=== PATIENT | female | born 1960 | race Caucasian/White ===

== ENCOUNTER 2023-08-19 17:09 | Emergency (ER) | payer MEDICARE, MEDICAID, SELFPAY ==
[2023-08-19] VITALS (35 sets, daily range): BP systolic 106–142; BP diastolic 54–102; PULSE 62–81; RESP 8–21; TEMP 36.8; O2SAT 93–100
--- NOTE | ~2023-08-19 | XR_ITS ---
XR chest 1V portable DATE: 08/19/2023 17:26 INDICATION: Chest pain, shortness of breath. Covid. TECHNIQUE: Portable supine AP view on 08/19/2023 at 1720 hours COMPARISON: None FINDINGS: Borderline heart size. Aortic arch calcification. No hilar or mediastinal enlargement. No pulmonary consolidation, pleural effusion, pulmonary vascular congestion or pneumothorax is detect ed. IMPRESSION: No active disease Reviewed, dictated and finalized at location B. IMPRESSION: No active disease
--- NOTE | ~2023-08-19 | CT_ITS ---
EXAMINATION: CTA chest PE protocol DATE: 08/19/2023 18:31 INDICATION: Cough and shortness of breath, COVID 19 positive TECHNIQUE: Computed tomography angiography (CTA) of the chest was performed with 100 mL Omnipaque-350 intravenous contrast timed to evaluate the pulmonary arteries. Coronal maximum intensity projection 3D-reconstructions were created by the technologist. The dose-length product (DLP) was 981.70 mGy-cm. Automated exposure control and iterative reconstruction technique were employed. COMPARISON: None. FINDINGS: The pulmonary arteries are well-opacified. No pulmonary embolism is identified. There is mi ld dependent atelectasis. Trace pleural effusions are present. There is no pneumothorax. No pathologi vito enlarged thoracic lymph nodes are identified. The heart size is normal. Calcified coronary shelli ry atherosclerosis is noted. There are changes of cholecystectomy. A 2.1 cm left adrenal mass contain ing macroscopic fat is consistent with a myelolipoma. There is moderate thoracic spondylosis. There i s advanced osteoarthritis of the shoulders. IMPRESSION: 1. No pulmonary embolism. Trace pleural effusions. Reviewed, dictated and finalized at location F.
--- NOTE | 2023-08-19 17:14 | ECG_ITS ---
Measurements Intervals [place] Rate: 73 P: 65 CO: 185 QRS: -44 QRSD: 98 T: 70 QT: 408 QTc: 451 Interpretive Statements SINUS RHYTHM MARKED LEFT AXIS DEVIATION [QRS AXIS < -30] PATTERN CONSISTENT WITH PULMONARY DISEASE NONSPECIFIC T-WAVE ABNORMALITY ABNORMAL ECG NO PREVIOUS ECG AVAILABLE FOR COMPARISON Electronically Signed On 08-20-2023 8:50:32 CDT by Tom Gold M.D.
--- NOTE | 2023-08-19 17:25 | ED.GENADULT ---
HPI - General Adult General Chief complaint: Unspecified Stated complaint: COVID+, CP/SOB Time Seen by Provider: 08/19/23 17:14 Source: patient Mode of arrival: EMS Limitations: no limitations History of Present Illness HPI narrative: Patient is a 62 y/o female who presents to the ED via EMS with c/o CP/SOB. Patient is a resident of [facility]. Patient is wheelchair-bound due to previous reconstructive surgeries on feet. She reports she was diagnosed with COVID-19 on Tuesday of this week. She complains of headaches, body aches, occasional lightheadedness, cough, decreased appetite. Over the last 2 days, she reports having increased shortness of breath and midsternal chest pain. She states the chest pain feels like her body aches. [facility] She denies fevers, nausea, vomiting, abdominal pain, lower extremity pain or swelling. Related Data Allergies Allergy/AdvReac Type Severity Reaction Status Date / Time levofloxacin Allergy Unknown Verified 08/19/23 17:20 metformin Allergy Unknown Verified 08/19/23 17:20 morphine Allergy Unknown Verified 08/19/23 17:20 Review of Systems Review of Systems: CONSTITUTIONAL: Reports decreased appetite. Denies fever, chills, or sweats. ENT: Denies rhinorrhea, congestion, sore throat. CARDIOVASCULAR: See HPI. RESPIRATORY: See HPI. GASTROINTESTINAL: Denies abdominal pain, nausea, vomiting, or diarrhea. GENITOURINARY: Denies dysuria or hematuria. SKIN: Denies rash or itching. MUSCULOSKELETAL: Reports myalgia. NEUROLOGIC: See HPI. All systems reviewed & are unremarkable except as noted in HPI and below Exam Narrative: GENERAL: Well appearing, morbidly obese with BMI of 40.8, non-toxic, in no acute distress. HEAD: Normocephalic, atraumatic. NECK: Supple. No adenopathy, no masses. RESPIRATORY: Airway patent, respirations nonlabored. Clear to auscultation bilaterally, no rales, rhonchi, wheezing. No focal lung sounds. Occasional coughing on exam. CARDIOVASCULAR: Regular rate and rhythm without murmurs, rubs, or gallops. Radial pulses 2+ and equal bilaterally. ABDOMINAL: Soft, no significant tenderness throughout abdomen, nondistended, no hepatosplenomegaly. Normoactive BS. MUSCULOSKELETAL: Moves all extremities. Strength/ROM intact without gross deformities. Chronic surgical deformities to bilateral feet. No lower extremity edema. No calf tenderness. SKIN: Warm, dry, normal color. No rashes. NEURO: A&O X3. Speech clear. Cranial nerves II-XII grossly intact. No ataxic movements. PSYCHIATRIC: Appropriate mood and affect. Normal interaction. Course Vital Signs Vital signs: Vital Signs Temperature 98.3 F 08/19/23 17:11 Pulse Rate 81 08/19/23 17:11 Respiratory Rate 15 08/19/23 17:11 Blood Pressure 121/74 08/19/23 17:11 Pulse Oximetry 99 08/19/23 17:11 Oxygen Delivery Room Air 08/19/23 17:11 Temperature 98.3 F 08/19/23 17:11 Pulse Rate 93 08/20/23 01:48 Respiratory Rate 21 H 08/20/23 01:48 Blood Pressure 123/95 H 08/20/23 01:48 Pulse Oximetry 96 08/20/23 01:48 Oxygen Delivery Room Air 08/19/23 17:21 Medical Decision Making MDM Narrative Medical decision making narrative: Patient presented to ED with known COVID 19, reporting shortness of breath, chest pain. Patient's vitals stable upon arrival. Oxygen 99% on room air. Afebrile. No tachycardia. EKG with nonspecific ST changes, no acute ST elevation or depression. Baseline troponin negative. Basic laboratory studies without significant abnormalities. UA with signs of infection, will treat. CBC w/o leukocytosis. No significant electrolyte abnormality. Creatinine 1.2. Unclear baseline, no records to compare to. Patient given fluids and ceftriaxone in the ED. Mild transaminitis. Patient without abdominal pain, nausea, vomiting at this time. Chest x-ray clear. Given COVID diagnosis, shortness of breath, chest
[2023-08-19 17:42] LABS: Basophils Percent Auto 0.6 % (0.2-1.2); Eosinophils Absolute Auto 0.3 K/mm3 (0-0.3); Eosinophils Percent Auto 4.6 % (0-4.4); Hematocrit 36.4 % (37.0-47.0); Hemoglobin 11.1 g/dL (12.0-15.0); Immature Granulocyte Absolute 0.03 K/mm3 (0.00-0.031); Immature Granulocyte Percent A 0.4 % (0-0.5); Lymphocytes Absolute Auto 1.04 K/mm3 (0.9-3.2); Lymphocytes Percent Auto 14.3 % (18.3-44.2); Mean Corpuscular HGB Conc 30.5 g/dl (32-36); Mean Corpuscular Hemoglobin 24.8 pg (26-34); Mean Corpuscular Volume 81.3 fl (80-100); Mean Platelet Volume 9.8 fl (7.4-10.4); Monocytes Absolute Auto 0.9 K/mm3 (0.1-0.6); Monocytes Percent Auto 11.7 % (2.6-8.5); Neutrophils Percent Auto 68.4 % (45.5-73.1); Platelet Count Result 199 k/mm3 (150-375); Red Blood Count 4.48 M/mm3 (4.2-5.4); Red Cell Distribution Width 19.1 % (11.5-14.5); White Blood Count 7.3 K/mm3 (4.5-10.0)
[2023-08-19 17:55] LABS: Prothrombin Time 13.4 Seconds (11.1-14.7)
[2023-08-19 17:56] LABS: Partial Thromboplastin Time 27.9 SECONDS (22.3-36.8)
[2023-08-19 18:02] LABS: Alanine Aminotransferase 68 U/L (6-35); Albumin Level 3.8 g/dL (3.5-5.1); Alkaline Phosphatase 125 U/L (38-126); Anion Gap 9 mmol/L (8-16); Aspartate Amino Transferase 69 U/L (14-36); Bilirubin,Total 0.8 mg/dL (0.2-1.3); Blood Urea Nitrogen 19 mg/dL (7-17); Calcium 8.8 mg/dL (8.4-10.2); Carbon Dioxide 24 mmol/L (22-30); Chloride 100 mmol/L (98-107); Estimated CRCL calculation 58 ml/min; Estimated Glomerular Filt Rate 46; Glucose 127 mg/dL (65-110); Magnesium 1.6 mg/dL (1.6-2.3); Potassium 4.1 mmol/L (3.4-5.0); Sodium 133 mmol/L (137-145)
[2023-08-19 18:12] LABS: Troponin I < 0.012 ng/mL (0.000-0.034)
[2023-08-19] MEDS: ACETAMINOPHEN 500 MG TABLET 1000 MG PO (18:43)
[2023-08-19 21:47] LABS: NT Pro B Type Natriuretic Pept 84 pg/mL (19.9-100)
[2023-08-19 21:50] LABS: Troponin I < 0.012 ng/mL (0.000-0.034)
[2023-08-19 23:14] LABS: Appearance Urine Cloudy (Clear); Bacteria Urine 4+ /hpf; Bilirubin Urine Negative (Negative); Blood Urine 2+ (Negative); Color Urine Yellow (Yellow); Glucose Urine UA Negative (Negative); Ketones Urine Negative (Negative); Leukocyte Esterase Ur 2+ LEU/UL (Negative); Nitrate Urine Positive (Negative); Non Pathogenic Casts 0-2; Protein Urine Negative (Negative); Specific Grav Ur 1.017 (1.001-1.035); Squamous Epithelial Cell Urine None seen /hpf (Few); Urobilinogen Urine 0.2 mg/dL (<2.0); WBC Urine 21-50 /hpf
[2023-08-19 23:36] LABS: Add Urine Microscopic? YES
[2023-08-20] VITALS: PULSE 69; RESP 12
[2023-08-20 00:01] VITALS: BP 131/81; PULSE 69; RESP 12
[2023-08-20 00:15] VITALS: PULSE 76; RESP 22
[2023-08-20 00:16] VITALS: BP 123/64; PULSE 70; RESP 11
[2023-08-20 01:48] VITALS: BP 123/95; PULSE 93; RESP 21; O2SAT 96
== END 2023-08-20 01:50 ==
PROVIDERS: Emergency Provider Physician Assistant; PCP Hospitalist
DX: U07.1 COVID-19 (principal); N30.01 Acute cystitis with hematuria; R06.00 Dyspnea, unspecified; M79.10 Myalgia, unspecified site
CPT/HCPCS: 36415; 71045; 71275; 80053; 81001; 83735; 83880; 84484; 85025; 85610; 85730; 87077; 87086; 87186; 93005; 96365; 99284; A9270; J0696; Q9967

== ENCOUNTER 2024-01-31 17:18 | Emergency (ER) | payer MEDICARE, MEDICAID, SELFPAY ==
--- NOTE | ~2024-01-31 | CT_ITS ---
EXAMINATION: CT abdomen pelvis w con DATE: 01/31/2024 20:58 INDICATION: abdominal pain TECHNIQUE: Computed tomography (CT) of the abdomen and pelvis was performed with 100 mL Omnipaque-350 intravenous contrast. Automated exposure control and iterative reconstruction technique were employe d. The dose-length product was 1508.14 mGy-cm. COMPARISON: None. FINDINGS: Lower thorax: Coronary artery and mitral calcification. Liver: Enlarged. Diffuse fatty infiltration. Biliary/Gallbladder: Gallbladder is absent. No bile duct dilation. Pancreas: Mild fatty infiltration. Spleen: Normal. Adrenals:Left adrenal myelolipoma. Kidneys: No suspicious mass, obstructing stone, or hydronephrosis. Punctate nonobstructing right midp ole calcification. GI tract: No small or large bowel dilation. Normal appendix. Diverticulosis without diverticulitis. Mesentery/Peritoneum: No ascites, mass, or free air. Retroperitoneum: No mass. Atherosclerotic abdominal aortic and/or arterial calcifications. Pelvis: Bulky enlarged uterus. Urinary bladder decompressed by Barajas catheter. 3.8 cm simple appearin g left ovarian cyst. Normal right ovary.. Soft Tissues: 3 cm area of soft tissue thickening and calcification at the base of the umbilicus, pos sibly with a small fluid collection. Small umbilical hernia, with closely applied loops of small kennedy l. Bones: No acute osseous finding. Grade 2 anterolisthesis at L5-S1. Multilevel severe lower lumbar fa cet arthropathy. Multilevel severe spinal canal and neural foraminal stenosis secondary to degenerati ve changes. IMPRESSION: Hepatomegaly. Steatosis. Question of a thick-walled possibly fluid containing deep soft tissue abscess at the umbilicus, corre late for pain/tenderness or symptoms of drainage. Closely applied underlying small bowel loops may be involved by adhesions. No dilation to suggest obstruction. Likely fibroid uterus. 3.8 cm simple appearing left ovarian cyst, recommend pelvic ultrasound follow-up in 6-12 months. Reviewed, dictated and finalized at location K. IMPRESSION: Hepatomegaly. Steatosis. Question of a thick-walled possibly fluid containing deep soft tissue abscess a t the umbilicus, correlate for pain/tenderness or symptoms of drainage. Closely applied underlying small bowel loops may be involved by adhesions. No dilation to suggest obstruction. Likely fibroid uterus. 3.8 cm simple appearing left ovarian cyst, recommend pelvic ultrasound follow-u p in 6-12 months.
[2024-01-31 17:25] VITALS: BP 136/93; PULSE 84; RESP 18; TEMP 36.9; O2SAT 95
[2024-01-31 19:30] VITALS: BP 142/81; PULSE 84; RESP 15; O2SAT 96
--- NOTE | 2024-01-31 19:39 | ED.GENADULT ---
HPI - General Adult General Chief complaint: Extremity Problem,Nontraumatic Stated complaint: LOwer extremity swelling Time Seen by Provider: 01/31/24 19:18 History of Present Illness HPI narrative: Patient is a 63-year-old female who presents to the emergency department this evening complaining of a lump on her right leg. Patient states that she has had this for a long time and her primary care physician informed her that it is likely a lipoma and if it is best to bother she needs to follow-up with a general surgeon as they might need to removed. Patient states that it is starting to bother her and she left for surgical referral for follow-up. Patient also states that she has been having intermittent abdominal pain to the left side of her abdomen. She admits that she has had a hernia repair with mesh and is concerned that the mesh may have moved as she has been having intermittent left-sided pain mainly when she moves. Patient denies any nausea or vomiting, she is currently denying any urinary symptoms dysuria hematuria admits has any fevers or chills at home and denies any constipation, diarrhea, melena or hematochezia. There are no other modifying, alleviating, or precipitating factors at this time. Related Data Allergies Allergy/AdvReac Type Severity Reaction Status Date / Time levofloxacin Allergy Unknown Verified 01/31/24 19:39 metformin Allergy Unknown Verified 01/31/24 19:39 morphine Allergy Unknown Verified 01/31/24 19:39 Review of Systems Review of Systems: All systems are reviewed and are negative unless stated otherwise in the HPI. Exam Narrative: General: Alert, awake, afebrile, in no acute distress. HEENT: PERRL, no rhinorrhea, no post nasal drip, oropharynx clear. Neck: Trachea midline, no JVD, no lymphadenopathy. Cardiovascular: Regular rate and rhythm, no murmurs, rubs or gallops, no peripheral edema. Respiratory: Clear to auscultation bilaterally, no tachypnea, no wheezing, no rhonchi, no rubs, no respiratory distress. Abdomen: Soft, no tenderness to palpation over all abdominal quadrants specifically no tenderness over the left upper quadrant and periumbilical region, nondistended, no rebound, no guarding, no peritoneal signs. Musculoskeletal: Right lower extremity id lump palpated in the anterior lateral region below the right knee, likely lipoma. No calf tenderness, no pitting edema, no erythema or evidence of infection. Skin: No rashes or petechia, no signs of infection. Psychiatric: Alert and oriented, normal behavior and judgment for situation. Neurological: Alert and oriented to person, place, and time. Follows all commands. No focal deficits, speech is clear and fluent. Course Vital Signs Vital signs: Vital Signs Temperature 98.5 F 01/31/24 17:25 Pulse Rate 84 01/31/24 17:25 Respiratory Rate 18 01/31/24 17:25 Blood Pressure 136/93 H 01/31/24 17:25 Pulse Oximetry 95 01/31/24 17:25 Temperature 98.5 F 01/31/24 17:25 Pulse Rate 75 01/31/24 21:26 Respiratory Rate 18 01/31/24 21:26 Blood Pressure 151/90 H 01/31/24 21:26 Pulse Oximetry 99 01/31/24 21:26 Medical Decision Making MDM Narrative Medical decision making narrative: The patient was evaluated by myself in the emergency department. History is obtained from patient who is an independent historian and physical exam was performed. External medical records were reviewed at this time. IV was established and pertinent tests were ordered. Laboratory results obtained revealing no acute process. Imaging studies obtained included CT abdomen and pelvis with IV contrast which was independently interpreted by me revealing questionable area of a thick-walled possibly fluid containing deep soft tissue abscess at the umbilicus, correlate for pain/tenderness or symptoms of drainage. Patient has no tenderness over the umbilical region and states that her pain is along her left upper quadrant and mild in nature. P
[2024-01-31 19:57] LABS: Basophils Absolute Auto 0.1 K/mm3 (0.0-0.1); Basophils Percent Auto 0.7 % (0.2-1.2); Eosinophils Absolute Auto 0.2 K/mm3 (0-0.3); Eosinophils Percent Auto 2.5 % (0-4.4); Hematocrit 37.6 % (37.0-47.0); Hemoglobin 12.3 g/dL (12.0-15.0); Immature Granulocyte Absolute 0.06 K/mm3 (0.00-0.031); Immature Granulocyte Percent A 0.7 % (0-0.5); Lymphocytes Absolute Auto 1.78 K/mm3 (0.9-3.2); Lymphocytes Percent Auto 19.4 % (18.3-44.2); Mean Corpuscular HGB Conc 32.7 g/dl (32-36); Mean Corpuscular Hemoglobin 28.2 pg (26-34); Mean Corpuscular Volume 86.2 fl (80-100); Mean Platelet Volume 9.2 fl (7.4-10.4); Monocytes Absolute Auto 0.7 K/mm3 (0.1-0.6); Monocytes Percent Auto 7.3 % (2.6-8.5); Neutrophils Absolute Auto 6.4 K/mm3 (1.3-6.7); Neutrophils Percent Auto 69.4 % (45.5-73.1); Platelet Count Result 213 k/mm3 (150-375); Red Blood Count 4.36 M/mm3 (4.2-5.4); Red Cell Distribution Width 14.8 % (11.5-14.5); White Blood Count 9.2 K/mm3 (4.5-10.0)
[2024-01-31 20:11] LABS: Lactic Acid Reflex 1.9 mmol/L (0.7-2.0)
[2024-01-31 20:13] LABS: Alanine Aminotransferase 33 U/L (6-35); Albumin Level 3.9 g/dL (3.5-5.1); Alkaline Phosphatase 164 U/L (38-126); Anion Gap 8 mmol/L (4-12); Aspartate Amino Transferase 43 U/L (14-36); Bilirubin,Total 0.7 mg/dL (0.2-1.3); Blood Urea Nitrogen 26 mg/dL (7-17); Calcium 9.5 mg/dL (8.4-10.2); Carbon Dioxide 26 mmol/L (22-30); Chloride 97 mmol/L (98-107); Estimated CRCL calculation 64 ml/min; Estimated Glomerular Filt Rate 50; Glucose 264 mg/dL (65-110); Lipase 823 U/L (23-300); Potassium 4.4 mmol/L (3.4-5.0); Sodium 131 mmol/L (137-145)
[2024-01-31] MEDS: SODIUM CHLORIDE 0.9% IV 1,000 ML 999 ML IV CONT (20:45)
[2024-01-31 21:26] VITALS: BP 151/90; PULSE 75; RESP 18; O2SAT 99
[2024-01-31] MEDS: ACETAMINOPHEN 325 MG TABLET 650 MG PO (22:42)
[2024-01-31 23:50] VITALS: BP 146/90; PULSE 72; RESP 19; O2SAT 100
== END 2024-02-01 00:15 | disposition home or self-care (01) ==
PROVIDERS: Emergency Provider Emergency Medicine; PCP Hospitalist
DX: R10.12 Left upper quadrant pain (principal); R74.8 Abnormal levels of other serum enzymes
CPT/HCPCS: 36415; 74177; 80053; 82248; 83605; 83690; 85025; 96360; 99284; A9270; J7030; Q9967

== ENCOUNTER 2024-04-02 21:00 | Inpatient (IN) | payer MEDICARE, MEDICAID, SELFPAY ==
--- NOTE | ~2024-04-02 | MR_ITS ---
MR brain/brain stem with and wo con Ordering provider: Cassidy Marcos MD History: 63 years Female with . history of epilepsy, presenting with status epilep . Comparison: None Technique: MRI brain was performed without contrast. FINDINGS: BONES: Normal. CRANIOCERVICAL JUNCTION: normal. PITUITARY: Normal. Partial empty sella turcica. MAJOR INTRACRANIAL VESSELS: Normal flow void. OPTIC NERVES AND CRANIAL NERVES VII AND VIII COMPLEXES: Grossly normal. BRAIN PARENCHYMA AND CSF SPACES: Scattered T2 and FLAIR hyperintense signal areas are seen in the br ain white matter and pericallosal area suggestive of white matter disease. T2 and FLAIR hyperintense signal areas seen in the rachel which measures 1.9 x 1.7 cm. No diffusion restriction is seen in the ar ea. No acute or chronic intracranial hemorrhage. No extra axial fluid collections. Diffusion weighted and ADC mapping images reveal no definite recent ischemia. No midline shift or mass effect. PARANASAL SINUSES: Normal. MASTOIDS: Normal SUPERFICIAL/SURROUNDING SOFT TISSUES: Normal. IMPRESSION: 1. T2 and FLAIR hyperintense signal area in the rachel with no postcontrast enhancement. The different ial includes multiple sclerosis, mass, encephalitis and hemorrhage. No definite evidence of hemorrhag e is seen. Follow-up advised. 2. Multiple scattered T2 and FLAIR hyperintense signal areas suggestive of white matter disease spec ifically multiple sclerosis. Clinical correlation advised. Reviewed, dictated and finalized at location A. IMPRESSION: 1. T2 and FLAIR hyperintense signal area in the rachel with no postcontrast enha ncement. The differential includes multiple sclerosis, mass, encephalitis and h emorrhage. No definite evidence of hemorrhage is seen. Follow-up advised. 2. Multiple scattered T2 and FLAIR hyperintense signal areas suggestive of whi te matter disease specifically multiple sclerosis. Clinical correlation advised .
--- NOTE | ~2024-04-02 | XR_ITS ---
EXAM: XR hip BI 2V w AP pelvis DATE: 04/02/2024 22:49 HISTORY: fall . COMPARISON: CT abdomen pelvis/12/24. FINDINGS: Severe lumbar degenerative disc disease. Normal mineralization. Osteochondroma projecting off the right iliac wing. Moderate bilateral hip osteoarthritis. No fracture or dislocation. Mild deg enerative change in the bilateral SI joints. IMPRESSION: No acute osseous finding in the pelvis or bilateral hips. Reviewed, dictated and finalized at location K.
--- NOTE | ~2024-04-02 | XR_ITS ---
EXAMINATION: XR chest 1V portable Exam Date/Time: 04/02/2024 22:10 CDT HISTORY: AMS FALL PAIN Comparison: 08/19/2023. RESULT: Lines, tubes, and devices: None. Lungs and pleura: Leftward rotation. Low volumes with crowding, otherwise clear. Cardiomediastinal silhouette: Stable. Other: No acute osseous or upper abdominal finding. IMPRESSION: No acute cardiopulmonary process. Reviewed, dictated and finalized at location K.
--- NOTE | ~2024-04-02 | US_ITS ---
EXAMINATION: US carotid duplex BI DATE: 04/09/2024 19:29 INDICATION: Cerebrovascular disease TECHNIQUE: Grayscale, color Doppler, and pulsed Doppler images of the cervical carotid arteries were obtained. The degree of vessel stenosis is placed in one of the following categories: normal, <50%, 5 0-69%, >=70% but less than near-occlusion, near-occlusion, or total occlusion. Note that percent sten osis relative to normal distal artery lumen diameter is indirectly measured from velocity measurement s as described by Malcolm, et al. Radiology 2003; 229:340-346. Notes: Normal: Peak systolic velocity <125 centimeters/sec and no plaque <50%. Peak systolic velocity <125 ( EDV <40; ICA/CCA PSV ratio <2.0; used these factors only a tandem lesions or low cardiac output or co ntralateral disease) 50-69 %: PSV 125-230 (EDV 40-100; ratio 2-4) >= 70% but less than near occlusion: PSV greater than 230 (EDV > 100; ratio> 4.0) Near Occlusion: PSV that is variable; markedly narrowed lumen Occlusion: Absent flow on color/spectral Doppler and no lumen on lopez scale. COMPARISON: None. FINDINGS: RIGHT: The right common carotid artery (CCA) peak systolic velocity (PSV) is 66 cm/s. The right internal car otid artery (ICA) PSV is 90 cm/s. The right ICA end-diastolic velocity (EDV) is 31 cm/s. The right IC A/CCA PSV ratio is 1.4. The external carotid artery (ECA) PSV is 79 cm/s. There is antegrade flow in the right vertebral artery. LEFT: The left CCA PSV is 74 cm/s. The left ICA PSV is 106 cm/s. The left ICA EDV is 32 cm/s. The left ICA/ CCA PSV ratio is 1.4. The ECA PSV is 65 cm/s. There is antegrade flow in the left vertebral artery. IMPRESSION: 1. Less than 50% stenosis in the right internal carotid artery by sonographic criteria. 2. Less than 50% stenosis in the left internal carotid artery by sonographic criteria. Reviewed, dictated and finalized at location B. IMPRESSION: 1. Less than 50% stenosis in the right internal carotid artery by sonographic [place]. 2. Less than 50% stenosis in the left internal carotid artery by sonographic [place].
--- NOTE | ~2024-04-02 | XR_ITS ---
EXAM: XR knee RT min 4V DATE: 04/02/2024 22:19 HISTORY: pain, fall . COMPARISON: None available. FINDINGS: Decreased mineralization. No fracture or dislocation. No lytic or blastic lesion. Osseous excrescences off the patella and the lateral epicondyle, presumably representing osteochondromas. Sev ere tricompartmental degenerative change. Large fabella versus loose joint body posteriorly. No erosi on or periosteal change. Soft tissues within normal limits. IMPRESSION: No acute osseous finding in the right knee. Reviewed, dictated and finalized at location K.
--- NOTE | ~2024-04-02 | CT_ITS ---
EXAMINATION: CT brain wo con DATE: 04/02/2024 22:31 INDICATION: Fall, AMS . TECHNIQUE: Computed tomography (CT) of the head was performed without intravenous contrast. The mA wa s adjusted according to patient size. Iterative reconstruction technique was employed. The dose-lengt h product was 605.33 mGy-cm. COMPARISON: None. FINDINGS: Moderate motion artifact at the base of skull. No acute intracranial hemorrhage or extra-axial fluid collection. No hydrocephalus, mass, or herniation. No acute ischemic infarct. Unremarkable dural venous sinus attenuation. No acute osseous abnormality. The aerated spaces are clear. Mild atrophy and chronic white matter change. Atherosclerotic intracranial calcification. Bilateral b yvette linear calcification. IMPRESSION: No acute intracranial process. Reviewed, dictated and finalized at location K.
--- NOTE | ~2024-04-02 | CT_ITS ---
EXAMINATION: CT facial & cervical spine wo DATE: 04/02/2024 22:36 INDICATION: fall TECHNIQUE: Computed tomography (CT) of the maxillofacial region and cervical spine was performed with out intravenous contrast. Automated exposure control and iterative reconstruction technique were empl oyed. The dose-length product was 682.11 mGy-cm. COMPARISON: None FINDINGS: CERVICAL: Vertebral Body Alignment: Reversed lordosis centered at C5-6. Craniocervical and atlantoaxial alignment: Moderate degenerative change. Alignment intact. Osseous structures/fracture: No evidence of a lytic or blastic process in the visualized spine. No e vidence of acute fracture. Cervical soft tissues: The paraspinal soft tissues planes are maintained. Degenerative changes: Multilevel moderate degenerative disc disease. Multilevel facet arthropathy. Se jamison central canal narrowing at C5-6 and C6-7 secondary to degenerative changes. Incidental note of s evere bilateral neural foraminal narrowing at T1-2 secondary to degenerative changes. FACE: Soft Tissues: Small area of right frontal scalp swelling. Enlarged left submandibular gland. Facial bones: No acute fracture. No lytic or blastic process. Eyes: The globes are intact. The soft tissue planes of the orbits are maintained. Paranasal Sinuses: Mild inferior bilateral maxillary mucosal thickening, the remaining aerated space s are clear. Foreign Bodies: No radiopaque foreign bodies. Other Findings: Dental caries and periodontal disease. IMPRESSION: No acute fracture or traumatic malalignment in the cervical spine. No acute facial bone fracture. Left submandibular gland enlargement. Severe central canal narrowing at C5-6 and C6-7 secondary to degenerative changes. Severe bilateral neural foraminal narrowing at T1-2 secondary degenerative changes. Reviewed, dictated and finalized at location K. IMPRESSION: No acute fracture or traumatic malalignment in the cervical spine. No acute fac ial bone fracture. Left submandibular gland enlargement. Severe central canal narrowing at C5-6 and C6-7 secondary to degenerative baker es. Severe bilateral neural foraminal narrowing at T1-2 secondary degenerative lares ges.
[2024-04-02 20:59] VITALS: BP 182/99; PULSE 113; RESP 15; TEMP 36.6; O2SAT 100
--- NOTE | 2024-04-02 21:04 | ECG_ITS ---
[facility] [address] Test Date: 2024-04-02 Pat Name: Nhung Cote Department: Room: Gender: F Binder Sorter: Álvaro : 1960 Requested By: Tessie Bowen Order Number: [id number] Reading MD: Torsten Gilbert M.D. Measurements Intervals [place] Rate: 114 P: 45 TX: 181 QRS: -31 QRSD: 88 T: 71 QT: 322 QTc: 443 Interpretive Statements SINUS TACHYCARDIA POSSIBLE LEFT ATRIAL ENLARGEMENT [-0.1mV P WAVE IN V1/V2] MARKED LEFT AXIS DEVIATION [QRS AXIS < -30] POSSIBLE ANTERIOR MYOCARDIAL INFARCTION , OF INDETERMINATE AGE [30 ms Q WAVE IN V3/V4, OR R < 0.2 mV IN V4] No previous ECG available for comparison Electronically Signed On 04-03-2024 14:17:43 CDT by Torsten Gilbert M.D.
[2024-04-02] MEDS: LORazepam INJ (*CRX) 2 MG/ML VIAL IV PUSH (21:44)
--- NOTE | 2024-04-02 21:48 | PC.NURSE ---
Addendum entered by Mesfin Johnson RN 04/02/24 22:15: Entered by this RN. Charted under wrong user. Original Note: This RN heard pt yell out when xray entered room. Upon entering pt room pt was having tonic clonic movements. Pt turned to side and suctioned as needed. EDP Tessie at bedside. Episode lasted approx 2 mins. Pt now postictal and crying. 97% on RA. Daughter had called to notify staff that pt is epileptic.
--- NOTE | 2024-04-02 21:51 | ED.FALL ---
HPI - Fall General Chief Complaint: Fall <Tessie Kunz PA-C - Last Filed: 04/03/24 00:27> Stated Complaint: fall <Tessie Kunz PA-C - Last Filed: 04/03/24 00:27> History of Present Illness HPI Narrative: 63-year-old female with a history of epilepsy on Keppra 750 mg b.i.d., hypothyroidism, indwelling Barajas catheter, type 2 diabetes mellitus, morbid obesity, hyperlipidemia, MDD presents to emergency department via EMS from [facility] for an unwitnessed fall. Unsure if patient had a seizure. She did hit her head, unknown LOC. She is reporting with a bruise to the left inferior aspect of her chin and a right-sided hematoma. Patient was complaining of right knee pain and received to see mcg of fentanyl EN route. She is not anticoagulated. Upon my evaluation patient is A&O x1, per triage note she was A&Ox4 upon arrival. The patient is unable to provide any significant history upon my evaluation. She is repeatedly saying ?I love CJ?. <Tessie Kunz PA-C - Last Filed: 04/03/24 00:27> Related Data Home Medications: Home Medications Medication Instructions Recorded Confirmed aspirin 81 mg tablet,delayed 81 mg PO DAILY 02/24/24 04/03/24 release atorvastatin 40 mg tablet 40 mg PO DAILY 02/24/24 04/03/24 cyclobenzaprine 10 mg tablet 10 mg PO BID 02/24/24 04/03/24 diphenoxylate-atropine 2.5 1 tablet PO QID PRN Diarrhea 02/24/24 04/03/24 mg-0.025 mg tablet (Lomotil) docusate sodium 100 mg capsule 100 mg PO DAILY 02/24/24 04/03/24 (Colace) duloxetine 60 mg capsule,delayed 60 mg PO DAILY 02/24/24 04/03/24 release insulin aspart U-100 100 unit/mL 1 sliding scale dose subcut 02/24/24 04/03/24 (3 mL) subcutaneous pen (Novolog USEASDIRECTD FlexPen U-100 Insulin aspart) insulin glargine 100 unit/mL (3 12 unit subcut QPM 02/24/24 04/03/24 mL) subcutaneous pen (Basaglar KwikPen U-100 Insulin) levetiracetam 750 mg tablet 750 mg PO Q12H 02/24/24 04/03/24 levothyroxine 88 mcg capsule 88 mcg PO DAILY 02/24/24 04/03/24 loperamide 2 mg capsule 2 mg PO Q6H PRN Diarrhea 02/24/24 04/03/24 melatonin 5 mg capsule 5 mg PO DAILY PRN Insomnia 02/24/24 04/03/24 metoprolol succinate 25 mg 12.5 mg PO DAILY 02/24/24 04/03/24 tablet,extended release 24 hr ondansetron 8 mg disintegrating 8 mg PO Q8H 02/24/24 04/03/24 tablet polyethylene glycol 3350 17 17 g PO DAILY PRN Constipation 02/24/24 04/03/24 gram/dose oral powder (Miralax) sertraline 50 mg tablet 50 mg PO DAILY 02/24/24 04/03/24 sitagliptin phosphate 100 mg 100 mg PO DAILY 02/24/24 04/03/24 tablet (Januvia) hydrocodone 5 mg-acetaminophen 325 1 tablet PO Q4H PRN Pain 04/03/24 04/03/24 mg tablet lidocaine 4 % topical patch 1 patch topical DAILY 04/03/24 04/03/24 nystatin 100,000 unit/gram topical 1 applic topical BID 04/03/24 04/03/24 powder <Tessie Kunz PA-C - Last Filed: 04/03/24 00:27> Allergies/Adverse Reactions: Allergies Allergy/AdvReac Type Severity Reaction Status Date / Time levofloxacin Allergy Unknown Verified 04/02/24 21:10 metformin Allergy Unknown Verified 04/02/24 21:10 morphine Allergy Unknown Verified 04/02/24 21:10 <Tessie Kunz PA-C - Last Filed: 04/03/24 00:27> Review of Systems Review of Systems: CONSTITUTIONAL: Denies fever, chills, or sweats. EYES: Denies visual changes, redness, or discharge. ENT: Denies rhinorrhea, congestion, sore throat, or otalgia. CARDIOVASCULAR: Denies chest pain, palpitations, or edema. RESPIRATORY: Denies cough or dyspnea. GASTROINTESTINAL: Denies abdominal pain, nausea, vomiting, or diarrhea. GENITOURINARY: Denies dysuria or hematuria. SKIN: Denies rash or itching. MUSCULOSKELETAL: See HPI NEUROLOGIC: See HPI PSYCHIATRIC: Denies anxiety or depression. <Tessie Kunz PA-C - Last Filed: 04/03/24 00:27> [facility] Past Medical History Medical History: Medical History (Updated 04/03/24 @ 04:42 by Alona Chun DO) Anxiet
[2024-04-02 21:52] LABS: Glucose Point of Care 224 mg/dl (65-105)
[2024-04-02 22:09] VITALS: BP 186/93; PULSE 109; RESP 22; O2SAT 97
[2024-04-02] MEDS: levETIRAcetam IV 750 MG in DEXTROSE 5% 100 ML 430 MG IVPB (22:09)
[2024-04-02 22:15] LABS: Basophils Absolute Auto 0.1 K/mm3 (0.0-0.1); Basophils Percent Auto 0.6 % (0.2-1.2); Eosinophils Absolute Auto 0.2 K/mm3 (0-0.3); Eosinophils Percent Auto 1.5 % (0-4.4); Hematocrit 39.5 % (37.0-47.0); Hemoglobin 12.7 g/dL (12.0-15.0); Immature Granulocyte Absolute 0.07 K/mm3 (0.00-0.031); Immature Granulocyte Percent A 0.7 % (0-0.5); Lymphocytes Absolute Auto 1.11 K/mm3 (0.9-3.2); Mean Corpuscular HGB Conc 32.2 g/dl (32-36); Mean Corpuscular Hemoglobin 28.8 pg (26-34); Mean Corpuscular Volume 89.6 fl (80-100); Mean Platelet Volume 9.2 fl (7.4-10.4); Monocytes Absolute Auto 0.5 K/mm3 (0.1-0.6); Neutrophils Absolute Auto 8.2 K/mm3 (1.3-6.7); Neutrophils Percent Auto 81.2 % (45.5-73.1); Platelet Count Result 213 k/mm3 (150-375); Red Blood Count 4.41 M/mm3 (4.2-5.4); Red Cell Distribution Width 14.2 % (11.5-14.5); White Blood Count 10.1 K/mm3 (4.5-10.0)
[2024-04-02 22:25] LABS: Acetaminophen < 10 ug/mL (10-30); Ethanol < 10 mg/dL (<10); Prothrombin Time 13.8 Seconds (11.1-14.7); Salicylate < 1.0 mg/dL (2-20)
[2024-04-02 22:26] LABS: Alanine Aminotransferase 33 U/L (6-35); Albumin Level 4.6 g/dL (3.5-5.1); Alkaline Phosphatase 197 U/L (38-126); Anion Gap 13 mmol/L (4-12); Aspartate Amino Transferase 56 U/L (14-36); Bilirubin,Total 0.9 mg/dL (0.2-1.3); Blood Urea Nitrogen 21 mg/dL (7-17); Calcium 9.4 mg/dL (8.4-10.2); Carbon Dioxide 21 mmol/L (22-30); Chloride 99 mmol/L (98-107); Creatine Kinase 199 U/L (30-135); Estimated CRCL calculation 72 ml/min; Estimated Glomerular Filt Rate 56; Glucose 249 mg/dL (65-110); Potassium 4.5 mmol/L (3.4-5.0); Sodium 133 mmol/L (137-145)
[2024-04-02 22:37] LABS: Troponin I 0.028 ng/mL (0.000-0.034)
[2024-04-02 22:59] LABS: Beta-Hydroxybutyrate/Acetoacetate 0.16 mmol/L (0.02-0.27)
[2024-04-02] MEDS: SODIUM CHLORIDE 0.9% IV 1,000 ML 999 ML IV CONT (22:59)
[2024-04-02 23:24] LABS: Free T4 Free Thyroxine Reflex 1.32 ng/dL (0.78-2.19)
[2024-04-02 23:54] LABS: Appearance Urine Clear (Clear); Bacteria Urine None Seen /hpf; Bilirubin Urine Negative (Negative); Blood Urine 1+ (Negative); Color Urine Yellow (Yellow); Glucose Urine UA Negative (Negative); Ketones Urine Negative (Negative); Leukocyte Esterase Ur Negative LEU/UL (Negative); Nitrate Urine Negative (Negative); Protein Urine Negative (Negative); Specific Grav Ur 1.008 (1.001-1.035); Squamous Epithelial Cell Urine None Seen /hpf (Few); Urobilinogen Urine 0.2 mg/dL (<2.0); WBC Urine 0-5 /hpf (0-3); pH Urine 7.5 (5.0-9.0)
[2024-04-02 23:58] LABS: Add Urine Microscopic? YES
[2024-04-03] VITALS (20 sets, daily range): BP systolic 132–164; BP diastolic 80–98; PULSE 85–115; RESP 14–19; TEMP 36.4–37; O2SAT 95–99; BMI 46.2
[2024-04-03 00:19] LABS: Amphetamine Screen Urine Negative (Negative); Barbiturate Screen Urine Negative (Negative); Benzodiazepines Screen Urine Negative (Negative); Cannabinoid Screen Urine Negative (Negative); Cocaine Screen Urine Negative (Negative); Methadone Screen Urine Negative (Negative); Opiate Screen Urine Negative (Negative); Phencyclidine Screen Urine Negative (Negative)
[2024-04-03 00:30] LABS: Total Triiodothyronine (T3) 1.18 NG/ML (0.97-1.69)
--- NOTE | 2024-04-03 01:00 | ADMGEN ---
This patient, Nhung Cote, was admitted to IMU Room 209-. Patient/family oriented to hospital policies and general routines including ID bracelet, bed and alarms, visiting hours, pain management, procedures, bathroom and other care routines, personal items, smoking policy, room service/diet, and visiting hours. Information on how to activate the Rapid Response Team has been discussed. Patient/Family are encouraged to report perceived risks to care and to ask questions if they do not understand what they are told or what they should do.
[2024-04-03 01:05] LABS: Lactic Acid Reflex 2.3 mmol/L (0.7-2.0)
[2024-04-03] MEDS: HYDROcodone/acetaminophen (*CRX) 5-325 MG TABLET 1 TAB PO ×2 (03:33→07:54)
[2024-04-03 03:51] LABS: Reflex Lactic Acid Yes or No Add Lactic
--- NOTE | 2024-04-03 04:21 | PM.IMHP ---
H&P: HPI History of Present Illness Date/Time: 04/03/24 04:21 Chief Complaint: Fall Narrative: 63-year-old female with past medical history of morbid obesity, seizure disorder, insulin-dependent diabetes mellitus, hypothyroidism, chronic pain, chronic venous stasis dermatitis right lower extremity, Charcot arthropathy and anxiety, incomplete bladder emptying with chronic Barajas catheter for approximately 4 months (?this time?) and depression (among other illnesses) to presented to the ER from [facility] via EMS due to what was thought to be an unwitnessed fall. The patient had evidently just walked away from the nurses station where she has been having a full cognizant conversation and a few minutes later a resident called out was found down lying on her left side. EMS was called and patient was initially confused on arrival but mentation improved by the time she arrived to the ER. The patient did hit her head when she fell as witnessed by bruising to her left chin and right forehead. Patient was again altered but time ER provider had evaluated her. She was had stating repetitive sentences usually ?I love CJ?. [facility] staff did mention that they saw the patient shaking and that is why they called 911. While in the ER the patient had a witnessed seizure lasting 2-3 minutes with tonic clonic activity and snoring respirations. It is subsequently presumed that the patient likely had a 2nd seizure between arrival to the ER and initial physician evaluation. As the patient's mentation did clear again before she subsequently had the 3rd seizure. Patient was placed on her side and received oral pharyngeal suctioning. Patient did not have any desaturations with a seizure and received 2 mg of Ativan. After the seizure the patient was postictal but bedtime ER provider called me for admission the patient's mental status was back to baseline. The patient received a loading dose of Keppra in the ER equivalent to her b.i.d. dosing. The [facility] staff could not tell if the patient had [facility] at the [facility]. Patient does have a chronic indwelling Barajas catheter, for the last 3 4 months per patient report, but her urine does not appear consistent with infection and she is afebrile. While in the ER patient had a 2nd seizure that was witnessed as well. Given the number of seizure she had had in such a short interval she fit criteria for status epilepticus and was admitted as observation for close monitoring and evaluation by Neurology. CT scan of the brain without contrast in the ER was negative for any acute process. At the time my evaluation the patient back to being oriented times 4, speech is clear but slow, she has a fair to poor historian. She complains of pain in her right lower extremity in the area where he has chronic venous stasis dermatitis. Her pain is unchanged from her baseline. She also reports bilateral ankle pain from prior reconstructive surgeries for Charcot joint. Patient does report mild tenderness in the periumbilical region there is some firmness therapy well. She had outpatient imaging that demonstrated possible sister abscess. She was supposed to follow with General surgery but on follow-up with General surgery she did not discuss the abdominal imaging findings and instead discussed the lipoma of her leg. She has not had any fevers or chills or changes in bowel habits. Her discomfort in her abdomen is been unchanged is not worsened. She does have a distant history of an umbilical hernia repair with mesh. Review of Systems Review of Systems: 12 systems were reviewed with pertinent positives and negatives per HPI. Except as documented in the HPI, all other systems were reviewed and are negative. [facility] Past Medical History Medical History (Updated 04/03/24 @ 10:29 by Akira Knowles MD) Anxiety Arthritis Charcot's joint arthropathy in type 2 diabetes mellitus Bilateral ankles Cholecystectomy
[2024-04-03] MEDS: SODIUM CHLORIDE 0.9% IV 1,000 ML 100 ML IV CONT ×2 (05:01→15:20)
[2024-04-03 05:20] LABS: Lactic Acid 2.4 mmol/L (0.7-2.0)
[2024-04-03] MEDS: LEVOTHYROXINE SODIUM 88 MCG TABLET PO (05:20)
[2024-04-03 05:28] LABS: Alanine Aminotransferase 30 U/L (6-35); Albumin Level 3.8 g/dL (3.5-5.1); Alkaline Phosphatase 155 U/L (38-126); Anion Gap 8 mmol/L (4-12); Aspartate Amino Transferase 51 U/L (14-36); Bilirubin,Total 0.8 mg/dL (0.2-1.3); Blood Urea Nitrogen 19 mg/dL (7-17); Calcium 9.2 mg/dL (8.4-10.2); Carbon Dioxide 25 mmol/L (22-30); Chloride 100 mmol/L (98-107); Estimated CRCL calculation 78 ml/min; Estimated Glomerular Filt Rate > 60; Glucose 234 mg/dL (65-110); Sodium 133 mmol/L (137-145)
[2024-04-03] MEDS: ENOXAPARIN 40 MG/0.4 ML SYRINGE SUB-Q ×2 (07:54→22:04)
[2024-04-03] MEDS: SITagliptin PHOSPHATE 100 MG TABLET PO (07:55)
[2024-04-03] MEDS: ATORVASTATIN 40 MG TABLET PO (07:55)
[2024-04-03] MEDS: ASPIRIN 81 MG ENTERIC TABLET PO (07:55)
[2024-04-03] MEDS: SERTRALINE HCL 50 MG TABLET PO (07:55)
[2024-04-03] MEDS: DULoxetine HCL 60 MG CAPSULE.DR PO (07:55)
[2024-04-03] MEDS: DOCUSATE SODIUM 100 MG CAPSULE PO (07:56)
[2024-04-03] MEDS: METOPROLOL SUCCINATE EXT REL 25 MG TABCR PO (07:56)
[2024-04-03] MEDS: LIDOCAINE 5% PATCH 1 PATCH TOPICAL (07:56)
[2024-04-03] MEDS: TOLNAFTATE 1% POWDER 45 GM BTL 1 APPLIC TOPICAL ×2 (07:56→17:19)
[2024-04-03] MEDS: CYCLOBENZAPRINE HCL 10 MG TABLET PO ×2 (07:56→17:19)
[2024-04-03 08:35] LABS: Glucose Point of Care 172 mg/dl (65-105)
--- NOTE | 2024-04-03 09:09 | PM.IMPN ---
Progress Note: A&P Assessment and Plan (1) Status epilepticus: Code(s): G40.901 - Epilepsy, unspecified, not intractable, with status epilepticus Status: Acute (2) Breakthrough seizure: Code(s): G40.919 - Epilepsy, unspecified, intractable, without status epilepticus Status: Acute (3) Closed head injury: Qualifiers: Encounter type: initial encounter Qualified Code(s): S09.90XA - Unspecified injury of head, initial encounter Code(s): S09.90XA - Unspecified injury of head, initial encounter Status: Acute (4) Hypothyroidism: Qualifiers: Hypothyroidism type: unspecified Qualified Code(s): E03.9 - Hypothyroidism, unspecified Code(s): E03.9 - Hypothyroidism, unspecified Status: Acute (5) Chronic pain: Qualifiers: Chronic pain type: other chronic pain Qualified Code(s): G89.29 - Other chronic pain Code(s): G89.29 - Other chronic pain Status: Acute (6) Type 2 diabetes mellitus with hyperglycemia, with long-term current use of insulin: Code(s): E11.65 - Type 2 diabetes mellitus with hyperglycemia; Z79.4 - half-way (current) use of insulin Status: Acute (7) Chronic indwelling Barajas catheter: Code(s): Z97.8 - Presence of other specified devices Status: Acute (8) Abnormal CT of the abdomen: Code(s): R93.5 - Abnormal findings on diagnostic imaging of other abdominal regions, including retroperitoneum Status: Acute Plan Seizure, postictal confusion patient was brought to hospital because of seizure Patient received Keppra in the ED Patient had another episode of seizure during hospitalization EEG pending Received Keppra 1 g IV once per neurologist recommendation Continue carbonate 750 mg q.8 hours IV Start Ativan 2 mg IV push p.r.n. for active seizure Neuro check Follow-up neurologist recommendation type 2 diabetes mellitus with hyperglycemia. resume the patient's home Lantus. place patient on high-dose sliding scale insulin with Accu-Cheks a.c. HS and hypoglycemia protocol. dehydration Patient has elevated BUN creatinine ratio 21/1 sinus tachycardia. start normal saline IV Follow-up BMP lactic acidosis due to her recurrent seizures. CK is also elevated likely due to seizure. Will repeat electrolyte panel and lactic acid level in a.m. continue IV fluid resuscitation Will resume patient's home pain medications.Patient does have chronic indwelling Barajas catheter that was reportedly exchanged in the ER. He urine does not suggest infection. Will monitor I&O's closely. Patient has been admitted as observation status. Subjective Date/time seen: 04/03/24 09:09 Interval history: I saw and examined the patient. Patient was alert, confused. Per nurse report, patient had episode of seizure, and patient received 1 g Keppra per neurologist recommendation. Patient denied headache, nausea vomiting. Patient was afebrile, blood pressure stable, pulse ox 98 on room air. patient denied focal weakness Exam Narrative: GENERAL: in no acute distress. Well-nourished. - EYES: EOMI. Anicteric. - HENT: Moist mucous membranes. - LUNGS: Clear to auscultation bilaterally, no wheezing, rhonchi, or rales. - CARDIOVASCULAR: Regular rate and rhythm. No murmur. No JVD. - ABDOMEN: Soft, non-tender and non-distended. No palpable masses. - EXTREMITIES: No edema. Peripheral pulses 2+. Non-tender. - NEUROLOGIC: No focal neurological deficits. CN II-XII grossly intact. - PSYCHIATRIC: Awake, Alert and not oriented x 3. lethargic - SKIN: No rashes or lesions. Warm. - LYMPH: No cervical lymphadenopathy. Objective Data Vital Signs Vital Signs: Vital Signs - 24 hr 04/02/24 20:59 04/02/24 22:09 04/03/24 00:52 Temperature 97.8 F Pulse Rate 113 H 109 H 114 H Respiratory Rate 15 22 H 14 Blood Pressure 182/99 H 186/93 H 153/87 H Pulse Oximetry 100 97 97 Oxygen Kiana
[2024-04-03] MEDS: levETIRAcetam IV 750 MG in DEXTROSE 5% 100 ML 430 MG IVPB ×2 (09:39→22:05)
--- NOTE | 2024-04-03 10:05 | WPDNEURCNPN ---
Consult date: 04/03/24 HPI: Nhung Cote is a 63 year old female admitted to the hospital to the emergency room where she was brought by EMS from the [facility] for an unwitnessed fall with no clear indication with that she had a seizure or not but she did hit her head was noted to have bruise to her left inferior aspect of the chin and the right-sided hematoma she was complaining of pain in her right knee PMFSH Past Medical History Medical History (Updated 04/03/24 @ 07:58 by Alona Chun DO) Anxiety Arthritis Charcot's joint arthropathy in type 2 diabetes mellitus Bilateral ankles Cholecystectomy planned Chronic hyponatremia 130-133 Chronic indwelling Barajas catheter Chronic pain CVA (cerebral vascular accident) Depression Epilepsy Hepatic steatosis Hyperlipidemia Hypertension Hypothyroidism Insulin dependent diabetes mellitus Morbid obesity with BMI of 45.0-49.9, adult Neuropathy Urinary retention with incomplete bladder emptying Urinary tract infection due to ESBL Klebsiella Surgical History Surgical History (Updated 04/03/24 @ 07:58 by Alona Chun DO) History of ankle surgery Bilateral ankle surgery for Charcot joint History of appendectomy History of X2 History of tonsillectomy and adenoidectomy History of umbilical hernia repair With mesh Hx of cholecystectomy Family History Family History (Updated 04/03/24 @ 07:58 by Alona Chun DO) Father Acute myocardial infarction, Onset Age: 55 Mother Dementia Social History Social History (Updated 04/03/24 @ 08:00 by Alona Chun DO) Social History: She reports that she has been in snf facility since fall. Prior to that she lived with her daughter. She rates the 2 daughters. 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 She denies any history of tobacco alcohol or illicit substance use. Code status: DNR/DNI per patient request Healthcare power of real estate attorney: Marlyn Cote (youngest daughter) Alcohol intake: never Substance use: never Substance use type: does not use Do You Feel Safe in your Home?: Yes Lack of Transportation: YES Lack of Food: Never True Current Housing: Decline to Answer Concerned About Future Housing: No Difficulty Paying Gas/Electric Bills: No Difficulty Paying for Meds: No Currently Unemployed: No Education: High School Diploma/GED Difficulty w/ Childcare or Family Care: Decline to Answer Spiritual care concerns: No Meds Home Medications and Allergies Home Medications Medication Instructions Recorded Confirmed Type aspirin 81 mg tablet,delayed 81 mg PO DAILY 02/24/24 04/03/24 History release atorvastatin 40 mg tablet 40 mg PO DAILY 02/24/24 04/03/24 History cyclobenzaprine 10 mg tablet 10 mg PO BID 02/24/24 04/03/24 History diphenoxylate-atropine 2.5 1 tablet PO QID PRN Diarrhea 02/24/24 04/03/24 History mg-0.025 mg tablet (Lomotil) docusate sodium 100 mg capsule 100 mg PO DAILY 02/24/24 04/03/24 History (Colace) duloxetine 60 mg capsule,delayed 60 mg PO DAILY 02/24/24 04/03/24 History release insulin aspart U-100 100 unit/mL 1 sliding scale dose subcut 02/24/24 04/03/24 History (3 mL) subcutaneous pen (Novolog USEASDIRECTD FlexPen U-100 Insulin aspart) insulin glargine 100 unit/mL (3 12 unit subcut QPM 02/24/24 04/03/24 History mL) subcutaneous pen (Basaglar KwikPen U-100 Insulin) levetiracetam 750 mg tablet 750 mg PO Q12H 02/24/24 04/03/24 History levothyroxine 88 mcg capsule 88 mcg PO DAILY 02/24/24 04/03/24 History loperamide 2 mg capsule 2 mg PO Q6H PRN Diarrhea 02/24/24 04/03/24 History melatonin 5 mg capsule 5 mg PO DAILY PRN Insomnia 02/24/24 04/03/24 History metoprolol succinate 25 mg 12.5 mg PO DAILY 02/24/24 04/03/24 History tablet,extended release 24 hr ondansetron 8 mg disintegrating 8 mg PO Q8H 02/24/24 04/03/24 History tablet
--- NOTE | 2024-04-03 10:17 | WPDNEURCNPN ---
Assessment and Plan Assessment and plan (1) Recurrent seizures: Code(s): G40.909 - Epilepsy, unspecified, not intractable, without status epilepticus Status: Acute Plan 1. Ongoing diagnosis of seizure disorder with [facility] as outlined patient is already on Keppra that will be continued as such in addition she has other comorbidities as outlined CT scan of the head is negative for the bleed in all other x-rays without any fracture. Treatment will continue as such the seizure precaution discussed the situation with her daughter who happened to be in the room. Consult date: 04/03/24 HPI: Nhung Cote is a 63 year old femaleAdmitted to the hospital through the emergency room where she was brought by the EMS from the [facility] for an unwitnessed fall. It was not clear whether she had a seizure or not but she did hit her head and was reported to have a bruise on her left inferior chain she was complaining of right knee pain at the time of initial evaluation in the emergency room she was oriented x1 and was unable to provide any significant history. Patient had been taking multiple medications as outlined particularly including her insulin and levetiracetam 750mg Q 12hours. On initial evaluation she was otherwise stable but she had ongoing history of multiple medical problems which included anxiety, arthritis, epilepsy, hypertension, insulin-dependent diabetes mellitus with neuropathy and morbid obesity. Her vital signs were normal except blood pressure 182/99 while in the emergency room she was noted to have a seizure by the nursing staff and immediate early precautions were taken and subsequently she was noted to have external state glucose of 224 and was started on intravenous Keppra with seizure precaution. Her routine blood studies were normal including the chemistry except the blood sugar of 234 and lactic acid of 2.4 toxicology screen was negative PMFSH Past Medical History Medical History (Updated 04/03/24 @ 10:29 by Akira Knowles MD) Anxiety Arthritis Charcot's joint arthropathy in type 2 diabetes mellitus Bilateral ankles Cholecystectomy planned Chronic hyponatremia 130-133 Chronic indwelling Barajas catheter Chronic pain CVA (cerebral vascular accident) Depression Epilepsy Hepatic steatosis Hyperlipidemia Hypertension Hypothyroidism Insulin dependent diabetes mellitus Morbid obesity with BMI of 45.0-49.9, adult Neuropathy Urinary retention with incomplete bladder emptying Urinary tract infection due to ESBL Klebsiella Surgical History Surgical History (Updated 04/03/24 @ 07:58 by Alona Chun DO) History of ankle surgery Bilateral ankle surgery for Charcot joint History of appendectomy History of X2 History of tonsillectomy and adenoidectomy History of umbilical hernia repair With mesh Hx of cholecystectomy Family History Family History (Updated 04/03/24 @ 07:58 by Alona Chun DO) Father Acute myocardial infarction, Onset Age: 55 Mother Dementia Social History Social History (Updated 04/03/24 @ 08:00 by Alona Chun DO) Social History: She reports that she has [facility] in [facility] facility [facility]. Prior to that she lived with her daughter. She rates the 2 daughters. 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 She denies any history of tobacco alcohol or illicit substance use. Code status: DNR/DNI per patient request Healthcare power of health care attorney: Marlyn Cote (youngest daughter) Alcohol intake: never Substance use: never Substance use type: does not use Do You Feel Safe in your Home?: Yes Lack of Transportation: YES Lack of Food: Never True Current Housing: Decline to Answer Concerned About Future Housing: No Difficulty Paying Gas/Electric Bills: No Difficulty Paying for Meds: No Currently Unemployed: No Education: High School D
[2024-04-03 12:04] LABS: Glucose Point of Care 190 mg/dl (65-105)
--- NOTE | 2024-04-03 12:08 | PC.NURSE ---
Neurologist notified at this time. Patient having seizure like activity. VS obtained just a couple of minutes before seizure activity. BP 159/96, O2 99% on room air, HR 109, RR 16, blood glucose 190. aware. Orders recieved for 1GM Keppra IV Now.
--- NOTE | 2024-04-03 12:49 | PC.NURSE ---
At approximately 12pm this RN went to check on patient as the person passing trays stated she Is not herself, she keeps reaching out . Upon arrival to the room the patient appeared drowsy. She had previously been sleeping with no signs of distress. The patient was initially confused during the assessment, unable to communicate appropriately where she was as she had previously been able to communicate. She was able to tell her first name and date of , however she was unable to state her last name. She was unable to tell me her daughters names when asked. VS obtained at this time and blood sugar obtained. During the assessment the patient seemed to wake up' more. She eventually was able to answer all orientation questions appropriately, including able to say her daughters names appropriately. She stated that she Was sleeping really good after my daughter left, I was just still out of it from waking up . Approximately 5-7 minutes later this RN heard the patient moaning from outside her room. Upon entry to the room the patient was making disorganized movements (shaking vs tremors) and unable to communicate, almost immediately (20-30 seconds) the movements and moaning stopped. The activity appeared to be seizure like activity and this RN called neurologist immediately for orders.
[2024-04-03] MEDS: levETIRAcetam 1000MG/NACL100ML 1,000 MG/100 ML BAG 400 MG IVPB (13:00)
[2024-04-03] MEDS: INSULIN GLARGINE (*BKC) 100 UNITS/ML 12 UNITS SUB-Q (17:18)
[2024-04-03 17:24] LABS: Glucose Point of Care 192 mg/dl (65-105)
[2024-04-03] MEDS: LORazepam INJ (*CRX) 2 MG/ML VIAL IV PUSH (20:34)
[2024-04-03 20:53] LABS: Glucose Point of Care 209 mg/dl (65-105)
[2024-04-03] MEDS: INSULIN ASPART (*BKC) 100 UNITS/ML SUB-Q (22:06)
[2024-04-04] VITALS (15 sets, daily range): BP systolic 132–167; BP diastolic 62–85; PULSE 75–97; RESP 16–28; TEMP 36.4–36.7; O2SAT 91–97
[2024-04-04] MEDS: SODIUM CHLORIDE 0.9% IV 1,000 ML 100 ML IV CONT ×2 (01:28→11:11)
[2024-04-04] MEDS: HYDROcodone/acetaminophen (*CRX) 5-325 MG TABLET 1 TAB PO ×3 (01:29→17:07)
[2024-04-04] MEDS: LEVOTHYROXINE SODIUM 88 MCG TABLET PO (06:35)
[2024-04-04 07:51] LABS: Glucose Point of Care 103 mg/dl (65-105)
--- NOTE | 2024-04-04 08:00 | PM.IMPN ---
Progress Note: A&P Assessment and Plan (1) Status epilepticus: Code(s): G40.901 - Epilepsy, unspecified, not intractable, with status epilepticus Status: Acute (2) Breakthrough seizure: Code(s): G40.919 - Epilepsy, unspecified, intractable, without status epilepticus Status: Acute (3) Closed head injury: Qualifiers: Encounter type: initial encounter Qualified Code(s): S09.90XA - Unspecified injury of head, initial encounter Code(s): S09.90XA - Unspecified injury of head, initial encounter Status: Acute (4) Hypothyroidism: Qualifiers: Hypothyroidism type: unspecified Qualified Code(s): E03.9 - Hypothyroidism, unspecified Code(s): E03.9 - Hypothyroidism, unspecified Status: Acute (5) Chronic pain: Qualifiers: Chronic pain type: other chronic pain Qualified Code(s): G89.29 - Other chronic pain Code(s): G89.29 - Other chronic pain Status: Acute (6) Type 2 diabetes mellitus with hyperglycemia, with long-term current use of insulin: Code(s): E11.65 - Type 2 diabetes mellitus with hyperglycemia; Z79.4 - prison (current) use of insulin Status: Acute (7) Chronic indwelling Barajas catheter: Code(s): Z97.8 - Presence of other specified devices Status: Acute (8) Abnormal CT of the abdomen: Code(s): R93.5 - Abnormal findings on diagnostic imaging of other abdominal regions, including retroperitoneum Status: Acute Plan Seizure, postictal confusion patient was brought to hospital because of seizure Patient received Keppra in the ED Patient had another episode of seizure during hospitalization EEG pending Received Keppra 1 g IV once per neurologist recommendation Continue carbonate 750 mg q.8 hours IV Start Ativan 2 mg IV push p.r.n. for active seizure Neuro check Follow-up neurologist recommendation 04/04: No seizure over the night type 2 diabetes mellitus with hyperglycemia. resume the patient's home Lantus. place patient on high-dose sliding scale insulin with Accu-Cheks a.c. HS and hypoglycemia protocol. dehydration Patient has elevated BUN creatinine ratio 21/1 sinus tachycardia. start normal saline IV Follow-up BMP corrected lactic acidosis due to her recurrent seizures. CK is also elevated likely due to seizure. repeat electrolyte panel and lactic acid level in a.m. received IV fluid resuscitation corrected Will resume patient's home pain medications.Patient does have chronic indwelling Barajas catheter that was reportedly exchanged in the ER. He urine does not suggest infection. Will monitor I&O's closely. Patient has been admitted as observation status. Subjective Date/time seen: 04/04/24 08:00 Interval history: I saw on exam patient today. Patient has no seizure overnight, patient is alert oriented x3, patient denies headache, new focal weakness, chest pain on palpitation, abdomen pain nausea vomiting. Patient afebrile, blood pressure stable, Exam Narrative: GENERAL: Pleasant, in no acute distress. Well-nourished. - EYES: EOMI. Anicteric. - HENT: Moist mucous membranes. - LUNGS: Clear to auscultation bilaterally, no wheezing, rhonchi, or rales. - CARDIOVASCULAR: Regular rate and rhythm. No murmur. No JVD. - ABDOMEN: Soft, non-tender and non-distended. No palpable masses. - EXTREMITIES: No edema. Peripheral pulses 2+. Non-tender. - NEUROLOGIC: No focal neurological deficits. CN II-XII grossly intact. - PSYCHIATRIC: Awake, Alert and oriented x 3. Appropriate mood and affect. - SKIN: No rashes or lesions. Warm. - LYMPH: No cervical lymphadenopathy. Objective Data Vital Signs Vital Signs: Vital Signs - 24 hr 04/03/24 08:09 04/03/24 08:09 04/03/24 10:00 Temperature Pulse Rate 111 H 111 H 105 H Respiratory Rate 18 Blood Pressure Pulse Oximetry 95 Oxygen Delivery Room Air 04/03/24 11:48 04/03/24 12:00 0
[2024-04-04 09:08] LABS: Basophils Absolute Auto 0.1 K/mm3 (0.0-0.1); Basophils Percent Auto 0.7 % (0.2-1.2); Eosinophils Absolute Auto 0.2 K/mm3 (0-0.3); Eosinophils Percent Auto 2.9 % (0-4.4); Hematocrit 33.2 % (37.0-47.0); Hemoglobin 10.8 g/dL (12.0-15.0); Immature Granulocyte Absolute 0.04 K/mm3 (0.00-0.031); Immature Granulocyte Percent A 0.5 % (0-0.5); Lymphocytes Absolute Auto 1.83 K/mm3 (0.9-3.2); Lymphocytes Percent Auto 25.1 % (18.3-44.2); Mean Corpuscular HGB Conc 32.5 g/dl (32-36); Mean Corpuscular Hemoglobin 28.9 pg (26-34); Mean Corpuscular Volume 88.8 fl (80-100); Mean Platelet Volume 9.3 fl (7.4-10.4); Monocytes Absolute Auto 0.6 K/mm3 (0.1-0.6); Monocytes Percent Auto 7.7 % (2.6-8.5); Neutrophils Absolute Auto 4.6 K/mm3 (1.3-6.7); Neutrophils Percent Auto 63.1 % (45.5-73.1); Platelet Count Result 208 k/mm3 (150-375); Red Blood Count 3.74 M/mm3 (4.2-5.4); Red Cell Distribution Width 14.4 % (11.5-14.5); White Blood Count 7.3 K/mm3 (4.5-10.0)
[2024-04-04 09:21] LABS: Magnesium 1.6 mg/dL (1.6-2.3); Phosphorus 3.6 mg/dL (2.5-4.5)
[2024-04-04 09:24] LABS: Alanine Aminotransferase 29 U/L (6-35); Albumin Level 3.5 g/dL (3.5-5.1); Alkaline Phosphatase 125 U/L (38-126); Anion Gap 4 mmol/L (4-12); Aspartate Amino Transferase 52 U/L (14-36); Bilirubin,Total 1.1 mg/dL (0.2-1.3); Blood Urea Nitrogen 16 mg/dL (7-17); Calcium 8.8 mg/dL (8.4-10.2); Carbon Dioxide 28 mmol/L (22-30); Chloride 105 mmol/L (98-107); Estimated CRCL calculation 71 ml/min; Estimated Glomerular Filt Rate 56; Glucose 105 mg/dL (65-110); Potassium 4.2 mmol/L (3.4-5.0); Sodium 137 mmol/L (137-145)
[2024-04-04] MEDS: ENOXAPARIN 40 MG/0.4 ML SYRINGE SUB-Q ×2 (09:24→20:25)
[2024-04-04] MEDS: METOPROLOL SUCCINATE EXT REL 25 MG TABCR PO (09:25)
[2024-04-04] MEDS: CYCLOBENZAPRINE HCL 10 MG TABLET PO ×2 (09:25→17:08)
[2024-04-04] MEDS: DULoxetine HCL 60 MG CAPSULE.DR PO (09:25)
[2024-04-04] MEDS: ATORVASTATIN 40 MG TABLET PO (09:25)
[2024-04-04] MEDS: SERTRALINE HCL 50 MG TABLET PO (09:25)
[2024-04-04] MEDS: SITagliptin PHOSPHATE 100 MG TABLET PO (09:26)
[2024-04-04] MEDS: DOCUSATE SODIUM 100 MG CAPSULE PO (09:26)
[2024-04-04] MEDS: ASPIRIN 81 MG ENTERIC TABLET PO (09:26)
[2024-04-04] MEDS: LIDOCAINE 5% PATCH 1 PATCH TOPICAL (09:27)
[2024-04-04] MEDS: TOLNAFTATE 1% POWDER 45 GM BTL 1 APPLIC TOPICAL ×2 (09:27→17:08)
[2024-04-04 10:38] LABS: Levetiracetam Keppra 29.7 mcg/mL (6.0-46.0)
[2024-04-04] MEDS: levETIRAcetam IV 750 MG in DEXTROSE 5% 100 ML 430 MG IVPB ×2 (11:11→20:25)
[2024-04-04 11:54] LABS: Glucose Point of Care 168 mg/dl (65-105)
[2024-04-04 16:22] LABS: Glucose Point of Care 172 mg/dl (65-105)
[2024-04-04] MEDS: INSULIN GLARGINE (*BKC) 100 UNITS/ML 12 UNITS SUB-Q (17:10)
[2024-04-04 20:21] LABS: Glucose Point of Care 206 mg/dl (65-105)
[2024-04-04] MEDS: MELATONIN 5 MG TABLET PO (20:26)
[2024-04-04] MEDS: INSULIN ASPART (*BKC) 100 UNITS/ML SUB-Q (20:26)
[2024-04-05] VITALS (14 sets, daily range): BP systolic 134–145; BP diastolic 55–72; PULSE 59–91; RESP 15–18; TEMP 36.2–36.6; O2SAT 97–100
[2024-04-05] MEDS: HYDROcodone/acetaminophen (*CRX) 5-325 MG TABLET 1 TAB PO ×4 (03:20→22:33)
[2024-04-05] MEDS: LEVOTHYROXINE SODIUM 88 MCG TABLET PO (06:20)
[2024-04-05 07:36] LABS: Basophils Absolute Auto 0.1 K/mm3 (0.0-0.1); Basophils Percent Auto 0.7 % (0.2-1.2); Eosinophils Absolute Auto 0.3 K/mm3 (0-0.3); Eosinophils Percent Auto 4.1 % (0-4.4); Hematocrit 34.5 % (37.0-47.0); Hemoglobin 10.9 g/dL (12.0-15.0); Immature Granulocyte Absolute 0.03 K/mm3 (0.00-0.031); Immature Granulocyte Percent A 0.4 % (0-0.5); Lymphocytes Absolute Auto 1.42 K/mm3 (0.9-3.2); Lymphocytes Percent Auto 20.1 % (18.3-44.2); Mean Corpuscular HGB Conc 31.6 g/dl (32-36); Mean Corpuscular Hemoglobin 28.5 pg (26-34); Mean Corpuscular Volume 90.1 fl (80-100); Mean Platelet Volume 9.3 fl (7.4-10.4); Monocytes Absolute Auto 0.6 K/mm3 (0.1-0.6); Monocytes Percent Auto 8.8 % (2.6-8.5); Neutrophils Absolute Auto 4.7 K/mm3 (1.3-6.7); Neutrophils Percent Auto 65.9 % (45.5-73.1); Platelet Count Result 195 k/mm3 (150-375); Red Blood Count 3.83 M/mm3 (4.2-5.4); Red Cell Distribution Width 14.2 % (11.5-14.5); White Blood Count 7.1 K/mm3 (4.5-10.0)
[2024-04-05 07:48] LABS: Magnesium 1.6 mg/dL (1.6-2.3); Phosphorus 3.6 mg/dL (2.5-4.5)
[2024-04-05 07:55] LABS: Glucose Point of Care 108 mg/dl (65-105)
[2024-04-05] MEDS: DOCUSATE SODIUM 100 MG CAPSULE PO (09:17)
[2024-04-05] MEDS: METOPROLOL SUCCINATE EXT REL 25 MG TABCR PO (09:17)
[2024-04-05] MEDS: ATORVASTATIN 40 MG TABLET PO (09:17)
[2024-04-05] MEDS: SERTRALINE HCL 50 MG TABLET PO (09:17)
[2024-04-05] MEDS: LIDOCAINE 5% PATCH 1 PATCH TOPICAL (09:17)
[2024-04-05] MEDS: TOLNAFTATE 1% POWDER 45 GM BTL 1 APPLIC TOPICAL ×2 (09:18→16:40)
[2024-04-05] MEDS: ENOXAPARIN 40 MG/0.4 ML SYRINGE SUB-Q ×2 (09:18→20:12)
[2024-04-05] MEDS: CYCLOBENZAPRINE HCL 10 MG TABLET PO ×2 (09:18→16:40)
[2024-04-05] MEDS: ASPIRIN 81 MG ENTERIC TABLET PO (09:18)
[2024-04-05] MEDS: levETIRAcetam IV 750 MG in DEXTROSE 5% 100 ML 430 MG IVPB (09:18)
[2024-04-05] MEDS: SITagliptin PHOSPHATE 100 MG TABLET PO (09:18)
[2024-04-05] MEDS: DULoxetine HCL 60 MG CAPSULE.DR PO (09:18)
--- NOTE | 2024-04-05 10:16 | WPDNEUROPN ---
Progress Note: A&P Assessment and Plan (1) Breakthrough seizure: Code(s): G40.919 - Epilepsy, unspecified, intractable, without status epilepticus Status: Acute (2) Epilepsy: Qualifiers: Epilepsy type: unspecified Code(s): G40.909 - Epilepsy, unspecified, not intractable, without status epilepticus Status: Acute Plan Ms. Cote is a 63 year old female with a history of diabetes, hypothyroidism, epilepsy, chronic venous stasis dermatitis RLE, carcot arthropathy, depression presenting from [facility] due to unwitnessed fall. Upon transfer to our ER she had two wtinessed seizures. No provoking factors identified. She has not had any additional seizures since admission. - Increase Keppra to 1000mg BID - Obtain MRI brain Subjective Date/time seen: 04/05/24 10:16 Interval history: Ms. Cote is a 63 year old female with a history of diabetes, hypothyroidism, epilepsy, chronic venous stasis dermatitis RLE, carcot arthropathy, depression presenting from [facility] due to unwitnessed fall. Patient was found lying on the floor shortly after having a conversation with nursing staff. EMS was called and patient was initially confused but mental status did improve by the time she arrived to the ER. When she presented to the ER she again became confused and then had a witnessed seizure lasting 2-3 minutes described as GTC. She did have a subsequent seizure in the ER. She received Ativan 2mg and did not have any additional seizures. CT head in the ER was negative for acute changes. Her labs were only revealing for elevated lactic acid. No signs of infection, UA was negative. She takes Keppra 750mg BID. Patient reports that she started having seizures around age 17. She has previously been on phenobarbita, dilantin, and depakote. She does not currently see a neurologist. Family history of positive for epilepsy in her daughter and brother. Review of Systems Review of Systems: All systems reviewed & are unremarkable except as noted in HPI and below Exam Const: General: comfortable and no acute distress HENMT: Mouth: Yes moist mucous membranes Eyes: Pupils: Equal, round and reactive pupils present Other: dysconjugate gaze Resp: Effort & Inspection: normal respiratory effort Skin: General skin exam: normal color Neuro: Other: Awake, alert, PERRL, dysconjugate gaze (L eye does not fully abduct with L gaze), otherwise face is symmetric, able to move all extremities against gravity. Psych: Mental Status: mental status grossly normal Objective Data Vital Signs Vital Signs: Vital Signs - 24 hr 04/04/24 12:00 04/04/24 12:00 04/04/24 12:00 Temperature 36.7 C Pulse Rate 82 80 82 Respiratory Rate 28 H 28 H Blood Pressure 149/74 H Pulse Oximetry 91 91 Oxygen Delivery Room Air 04/04/24 16:00 04/04/24 16:00 04/04/24 16:00 Temperature 36.7 C Pulse Rate 82 81 82 Respiratory Rate 16 16 Blood Pressure 145/85 H Pulse Oximetry 97 97 Oxygen Delivery Room Air 04/04/24 14:00 04/04/24 18:00 04/04/24 19:52 Temperature Pulse Rate 89 86 Respiratory Rate Blood Pressure Pulse Oximetry Oxygen Delivery Room Air 04/04/24 20:02 04/04/24 20:00 04/04/24 23:47 Temperature 36.6 C 36.6 C Pulse Rate 77 76 76 Respiratory Rate 18 18 Blood Pressure 132/62 153/65 H Pulse Oximetry 97 97 Oxygen Delivery 04/04/24 23:53 04/05/24 00:00 04/05/24 04:00 Temperature Pulse Rate 75 Respiratory Rate Blood Pressure Pulse Oximetry Oxygen Delivery Room Air Room Air 04/05/24 04:19 04/05/24 04:00 04/05/24 08:00 Temperature 36.6 C 36.5 C Pulse Rate 75 78 65 Respiratory Rate 18 16 Blood Pressure 144/72 H 136/55 L Pulse Oximetry 97 97 Oxygen Delivery 04/05/24 09:17 Temperature Pulse Rate 86 Respiratory Rate Blood Pressure Pulse Oximetry Oxygen Delivery Intake/Output Intake/Outp
[2024-04-05 11:56] LABS: Glucose Point of Care 163 mg/dl (65-105)
--- NOTE | 2024-04-05 12:49 | PC.NURSE ---
Spoke with Dr. Marcos concerning EEG for patient. Patients daughter thought it had been mentioned, will notify family as to why EEG has not been ordered. Verbal orders from Dr. Marcos to change IV Levetiracetam to PO.
--- NOTE | 2024-04-05 15:54 | PM.IMPN ---
Progress Note: A&P Assessment and Plan (1) Status epilepticus: Code(s): G40.901 - Epilepsy, unspecified, not intractable, with status epilepticus Status: Acute (2) Breakthrough seizure: Code(s): G40.919 - Epilepsy, unspecified, intractable, without status epilepticus Status: Acute (3) Closed head injury: Qualifiers: Encounter type: initial encounter Qualified Code(s): S09.90XA - Unspecified injury of head, initial encounter Code(s): S09.90XA - Unspecified injury of head, initial encounter Status: Acute (4) Hypothyroidism: Qualifiers: Hypothyroidism type: unspecified Qualified Code(s): E03.9 - Hypothyroidism, unspecified Code(s): E03.9 - Hypothyroidism, unspecified Status: Acute (5) Chronic pain: Qualifiers: Chronic pain type: other chronic pain Qualified Code(s): G89.29 - Other chronic pain Code(s): G89.29 - Other chronic pain Status: Acute (6) Type 2 diabetes mellitus with hyperglycemia, with long-term current use of insulin: Code(s): E11.65 - Type 2 diabetes mellitus with hyperglycemia; Z79.4 - assisted (current) use of insulin Status: Acute (7) Chronic indwelling Barajas catheter: Code(s): Z97.8 - Presence of other specified devices Status: Acute (8) Abnormal CT of the abdomen: Code(s): R93.5 - Abnormal findings on diagnostic imaging of other abdominal regions, including retroperitoneum Status: Acute Plan Seizure, postictal confusion patient was brought to hospital because of seizure Patient received Keppra in the ED Patient had another episode of seizure during hospitalization EEG pending Received Keppra 1 g IV once per neurologist recommendation Continue carbonate 750 mg q.8 hours IV Start Ativan 2 mg IV push p.r.n. for active seizure Neuro check Follow-up neurologist recommendation 04/04: No seizure over the night Dressed 6, changed to Keppra 1000 mg b.i.d. p.o., follow-up brain MRI type 2 diabetes mellitus with hyperglycemia. resume the patient's home Lantus. place patient on high-dose sliding scale insulin with Accu-Cheks a.c. HS and hypoglycemia protocol. dehydration Patient has elevated BUN creatinine ratio 21/1 sinus tachycardia. start normal saline IV Follow-up BMP corrected lactic acidosis due to her recurrent seizures. CK is also elevated likely due to seizure. repeat electrolyte panel and lactic acid level in a.m. received IV fluid resuscitation corrected resume patient's home pain medications .Patient does have chronic indwelling Barajas catheter that was reportedly exchanged in the ER. He urine does not suggest infection. Will monitor I&O's closely. Patient has been admitted as observation status. Subjective Date/time seen: 04/05/24 15:54 Interval history: I saw examined patient today, patient has no seizure over the night, still has some headache, denies focal weakness, patient is afebrile, blood pressure stable, patient denies focal weakness, no new issue even over the night. Exam Narrative: GENERAL: Pleasant, in no acute distress. Well-nourished. - EYES: EOMI. Anicteric. - HENT: Moist mucous membranes. - LUNGS: Clear to auscultation bilaterally, no wheezing, rhonchi, or rales. - CARDIOVASCULAR: Regular rate and rhythm. No murmur. No JVD. - ABDOMEN: Soft, non-tender and non-distended. No palpable masses. - EXTREMITIES: No edema. Peripheral pulses 2+. Non-tender. - NEUROLOGIC: No focal neurological deficits. CN II-XII grossly intact. - PSYCHIATRIC: Awake, Alert and oriented x 3. Appropriate mood and affect. - SKIN: No rashes or lesions. Warm. - LYMPH: No cervical lymphadenopathy. Objective Data Vital Signs Vital Signs: Vital Signs - 24 hr 04/04/24 16:00 04/04/24 16:00 04/04/24 16:00 Temperature 98.0 F Pulse Rate 82 81 82 Respiratory Rate 16 16 Blood Pressure 145/85 H Pulse Oximetry 97
[2024-04-05 16:05] LABS: Glucose Point of Care 145 mg/dl (65-105)
[2024-04-05] MEDS: INSULIN GLARGINE (*BKC) 100 UNITS/ML 12 UNITS SUB-Q (17:35)
[2024-04-05] MEDS: INSULIN ASPART (*BKC) 100 UNITS/ML SUB-Q (20:13)
[2024-04-05] MEDS: levETIRAcetam 500 MG TABLET 1000 MG PO (20:13)
[2024-04-05 21:55] LABS: Glucose Point of Care 255 mg/dl (65-105)
[2024-04-06] VITALS (16 sets, daily range): BP systolic 138–151; BP diastolic 54–84; PULSE 71–98; RESP 13–24; TEMP 36.3–37.7; O2SAT 93–100
[2024-04-06] MEDS: LEVOTHYROXINE SODIUM 88 MCG TABLET PO (05:28)
[2024-04-06 07:21] LABS: Glucose Point of Care 152 mg/dl (65-105)
[2024-04-06 08:04] LABS: Basophils Percent Auto 0.6 % (0.2-1.2); Eosinophils Absolute Auto 0.2 K/mm3 (0-0.3); Eosinophils Percent Auto 3.4 % (0-4.4); Hematocrit 35.4 % (37.0-47.0); Hemoglobin 11.2 g/dL (12.0-15.0); Immature Granulocyte Absolute 0.04 K/mm3 (0.00-0.031); Immature Granulocyte Percent A 0.6 % (0-0.5); Lymphocytes Absolute Auto 1.37 K/mm3 (0.9-3.2); Lymphocytes Percent Auto 21.9 % (18.3-44.2); Mean Corpuscular HGB Conc 31.6 g/dl (32-36); Mean Corpuscular Hemoglobin 28.2 pg (26-34); Mean Corpuscular Volume 89.2 fl (80-100); Mean Platelet Volume 9.4 fl (7.4-10.4); Monocytes Absolute Auto 0.4 K/mm3 (0.1-0.6); Monocytes Percent Auto 6.9 % (2.6-8.5); Neutrophils Absolute Auto 4.2 K/mm3 (1.3-6.7); Neutrophils Percent Auto 66.6 % (45.5-73.1); Platelet Count Result 198 k/mm3 (150-375); Red Blood Count 3.97 M/mm3 (4.2-5.4); White Blood Count 6.3 K/mm3 (4.5-10.0)
[2024-04-06 08:19] LABS: Magnesium 1.5 mg/dL (1.6-2.3); Phosphorus 3.5 mg/dL (2.5-4.5)
[2024-04-06] MEDS: METOPROLOL SUCCINATE EXT REL 25 MG TABCR PO (08:37)
[2024-04-06] MEDS: CYCLOBENZAPRINE HCL 10 MG TABLET PO ×2 (08:38→17:51)
[2024-04-06] MEDS: DOCUSATE SODIUM 100 MG CAPSULE PO (08:38)
[2024-04-06] MEDS: levETIRAcetam 500 MG TABLET 1000 MG PO ×2 (08:38→20:32)
[2024-04-06] MEDS: ATORVASTATIN 40 MG TABLET PO (08:38)
[2024-04-06] MEDS: SITagliptin PHOSPHATE 100 MG TABLET PO (08:38)
[2024-04-06] MEDS: DULoxetine HCL 60 MG CAPSULE.DR PO (08:38)
[2024-04-06] MEDS: SERTRALINE HCL 50 MG TABLET PO (08:38)
[2024-04-06] MEDS: ASPIRIN 81 MG ENTERIC TABLET PO (08:39)
[2024-04-06] MEDS: ENOXAPARIN 40 MG/0.4 ML SYRINGE SUB-Q ×2 (08:39→20:33)
[2024-04-06] MEDS: LIDOCAINE 5% PATCH 1 PATCH TOPICAL (08:43)
[2024-04-06] MEDS: TOLNAFTATE 1% POWDER 45 GM BTL 1 APPLIC TOPICAL (08:43)
[2024-04-06] MEDS: HYDROcodone/acetaminophen (*CRX) 5-325 MG TABLET 1 TAB PO ×2 (08:44→17:51)
--- NOTE | 2024-04-06 09:49 | PM.IMPN ---
Progress Note: A&P Assessment and Plan (1) Status epilepticus: Code(s): G40.901 - Epilepsy, unspecified, not intractable, with status epilepticus Status: Acute (2) Breakthrough seizure: Code(s): G40.919 - Epilepsy, unspecified, intractable, without status epilepticus Status: Acute (3) Closed head injury: Qualifiers: Encounter type: initial encounter Qualified Code(s): S09.90XA - Unspecified injury of head, initial encounter Code(s): S09.90XA - Unspecified injury of head, initial encounter Status: Acute (4) Hypothyroidism: Qualifiers: Hypothyroidism type: unspecified Qualified Code(s): E03.9 - Hypothyroidism, unspecified Code(s): E03.9 - Hypothyroidism, unspecified Status: Acute (5) Chronic pain: Qualifiers: Chronic pain type: other chronic pain Qualified Code(s): G89.29 - Other chronic pain Code(s): G89.29 - Other chronic pain Status: Acute (6) Type 2 diabetes mellitus with hyperglycemia, with long-term current use of insulin: Code(s): E11.65 - Type 2 diabetes mellitus with hyperglycemia; Z79.4 - [facility] (current) use of insulin Status: Acute (7) Chronic indwelling Barajas catheter: Code(s): Z97.8 - Presence of other specified devices Status: Acute (8) Abnormal CT of the abdomen: Code(s): R93.5 - Abnormal findings on diagnostic imaging of other abdominal regions, including retroperitoneum Status: Acute Plan Seizure, postictal confusion patient was brought to hospital because of seizure Patient received Keppra in the ED Patient had another episode of seizure during hospitalization EEG pending Received Keppra 1 g IV once per neurologist recommendation Continue carbonate 750 mg q.8 hours IV Start Ativan 2 mg IV push p.r.n. for active seizure Neuro check Follow-up neurologist recommendation 04/06: No seizure over the night c/w Keppra 1000 mg b.i.d. p.o., follow-up brain MRI an EEG type 2 diabetes mellitus with hyperglycemia. resume the patient's home Lantus. place patient on high-dose sliding scale insulin with Accu-Cheks a.c. HS and hypoglycemia protocol. dehydration Patient has elevated BUN creatinine ratio 21/1 sinus tachycardia. start normal saline IV Follow-up BMP corrected lactic acidosis due to her recurrent seizures. CK is also elevated likely due to seizure. repeat electrolyte panel and lactic acid level in a.m. received IV fluid resuscitation corrected resume patient's home pain medications .Patient does have chronic indwelling Barajas catheter that was reportedly exchanged in the ER. He urine does not suggest infection. Will monitor I&O's closely. Patient has been admitted as observation status. Subjective Date/time seen: 04/06/24 09:49 Interval history: I saw examined patient today, patient has no seizure over the night, still has some headache, denies focal weakness, patient is afebrile, blood pressure stable, patient denies focal weakness, no new issue even over the night. Exam Narrative: GENERAL: Pleasant, in no acute distress. Well-nourished. - EYES: EOMI. Anicteric. - HENT: Moist mucous membranes. - LUNGS: Clear to auscultation bilaterally, no wheezing, rhonchi, or rales. - CARDIOVASCULAR: Regular rate and rhythm. No murmur. No JVD. - ABDOMEN: Soft, non-tender and non-distended. No palpable masses. - EXTREMITIES: No edema. Peripheral pulses 2+. Non-tender. - NEUROLOGIC: No focal neurological deficits. CN II-XII grossly intact. - PSYCHIATRIC: Awake, Alert and oriented x 3. Appropriate mood and affect. - SKIN: No rashes or lesions. Warm. - LYMPH: No cervical lymphadenopathy. Objective Data Vital Signs Vital Signs: Vital Signs - 24 hr 04/05/24 10:00 04/05/24 12:00 04/05/24 12:00 Temperature 97.8 F Pulse Rate 75 75 91 Respiratory Rate 16 Blood Pressure 142/72 H Pulse Oximetry 97 Oxygen Deli
[2024-04-06 12:23] LABS: Glucose Point of Care 180 mg/dl (65-105)
--- NOTE | 2024-04-06 13:16 | WPDNEUROPN ---
Progress Note: A&P Assessment and Plan (1) Seizure disorder: Code(s): G40.909 - Epilepsy, unspecified, not intractable, without status epilepticus Status: Acute Plan I reviewed MRI of the brain which did not show any significant abnormality however I shall await for input from radiologist. I shall review the EEG if it is done.The patient is currently on Keppra 1000 mg twice a day. Magnesium level is low was 1.5 and has he can be given some supplementation other than that I would suggest to continue the Keppra 1000 mg twice a day for now. She should be followed up in Neurology Clinic periodically in view of the long-term history of seizure disorder and it appears to have not been fully controlled. Subjective Date/time seen: 04/06/24 13:16 Interval history: The patient has history of seizure disorder since age of 17. She states that she has not had any seizure for 2 years however she had a seizure prior to coming here that she had 2 seizures witnessed in the emergency room. The patient is scared about having these. She states that she has family members in the vicinity. She is currently in a rehab facility. She denies any other symptoms and overall is feeling better. She had MRI of the brain today this is a some withdrawal Discussed. No other additional symptoms reported. Review of Systems Review of Systems: All systems reviewed & are unremarkable except as noted in HPI and below Exam Narrative: Alert ,oriented to self, place and person. Cranial nerves any testing intact pain Motor system: moving both upper and lower limbs however reluctant to move her lower limbs she has significant edema which I believe is chronic. The rapid alternative movement of the left hand was somewhat less than the right hand however no asymmetry of reflexes. No carotid bruit. Heart sounds were normal however cardiac rhythm was in atrial fibrillation Objective Data Vital Signs Vital Signs: Vital Signs - 24 hr 04/05/24 14:00 04/05/24 16:00 04/05/24 16:00 Temperature 36.4 C Pulse Rate 59 L 81 76 Respiratory Rate 16 Blood Pressure 145/66 H Pulse Oximetry 100 Oxygen Delivery 04/05/24 18:00 04/05/24 19:51 04/05/24 20:10 Temperature 36.2 C L Pulse Rate 86 67 67 Respiratory Rate 15 15 Blood Pressure 134/67 Pulse Oximetry 100 100 Oxygen Delivery Room Air 04/05/24 20:00 04/05/24 22:00 04/06/24 00:00 Temperature Pulse Rate 77 79 79 Respiratory Rate 15 Blood Pressure Pulse Oximetry 100 Oxygen Delivery Room Air 04/06/24 00:00 04/06/24 00:00 04/06/24 02:00 Temperature 37.7 C H Pulse Rate 71 71 78 Respiratory Rate 16 Blood Pressure 151/75 H Pulse Oximetry 97 Oxygen Delivery 04/06/24 03:45 04/06/24 03:56 04/06/24 04:00 Temperature 36.6 C Pulse Rate 78 82 85 Respiratory Rate 16 20 Blood Pressure 141/54 H Pulse Oximetry 97 100 Oxygen Delivery Room Air 04/06/24 06:00 04/06/24 07:21 04/06/24 07:25 Temperature 36.4 C 36.4 C Pulse Rate 71 76 76 Respiratory Rate 24 H 24 H Blood Pressure 142/69 H 142/69 H Pulse Oximetry 99 99 Oxygen Delivery 04/06/24 08:37 04/06/24 09:43 04/06/24 11:04 Temperature 37.3 C Pulse Rate 85 76 Respiratory Rate 22 H Blood Pressure 146/84 H Pulse Oximetry 93 96 Oxygen Delivery Room Air 04/06/24 08:00 04/06/24 10:00 04/06/24 08:00 Temperature Pulse Rate 98 78 Respiratory Rate Blood Pressure Pulse Oximetry Oxygen Delivery Room Air Intake/Output Intake/Output: Intake & Output 04/03/24 04/04/24 04/05/24 04/06/24 23:59 23:59 23:59 23:59 Intake Total 2551.7 3592.0 1330 590 Output Total 3975 3550 3000 2525 [facility] -1423.3 42.0 -7420 -1935 Meds/Results Medications: Active Medications Generic Name Dose Route Start Last Admin Trade Name Freq PRN Reason Stop Dose Admin Hydrocodone Bitart/Acetaminophen 1 tab 04/03/24 03:00 04/06/24 08:44 Hydrocodone/
--- NOTE | 2024-04-06 13:37 | PC.NURSE ---
This patient, Nhung Cote, was transferred to [[id number] ] on 04/06/24 at 1324. Personal belongings sent with patient. Appropriate documentation sent with patient.
--- NOTE | 2024-04-06 14:30 | PC.NURSE ---
RN assumed care of pt
[2024-04-06 16:17] LABS: Glucose Point of Care 200 mg/dl (65-105)
[2024-04-06] MEDS: MAGNESIUM 13.5 MG TABLET (250 MG MAG GLUCONATE) PO (20:32)
[2024-04-06] MEDS: INSULIN ASPART (*BKC) 100 UNITS/ML SUB-Q (20:34)
[2024-04-06 20:38] LABS: Glucose Point of Care 248 mg/dl (65-105)
[2024-04-07] MEDS: HYDROcodone/acetaminophen (*CRX) 5-325 MG TABLET 1 TAB PO ×3 (03:42→23:34)
[2024-04-07 05:20] VITALS: BP 142/59; PULSE 83; RESP 13; TEMP 37; O2SAT 95
[2024-04-07] MEDS: LEVOTHYROXINE SODIUM 88 MCG TABLET PO (05:37)
[2024-04-07 07:31] LABS: Glucose Point of Care 143 mg/dl (65-105)
[2024-04-07 08:00] VITALS: BP 96/59; PULSE 75; RESP 14; TEMP 36.3; O2SAT 95
[2024-04-07] MEDS: ENOXAPARIN 40 MG/0.4 ML SYRINGE SUB-Q ×2 (09:08→20:17)
[2024-04-07] MEDS: SITagliptin PHOSPHATE 100 MG TABLET PO (09:09)
[2024-04-07] MEDS: DOCUSATE SODIUM 100 MG CAPSULE PO (09:09)
[2024-04-07] MEDS: METOPROLOL SUCCINATE EXT REL 25 MG TABCR PO (09:09)
[2024-04-07] MEDS: DULoxetine HCL 60 MG CAPSULE.DR PO (09:09)
[2024-04-07] MEDS: CYCLOBENZAPRINE HCL 10 MG TABLET PO ×2 (09:09→17:16)
[2024-04-07] MEDS: SERTRALINE HCL 50 MG TABLET PO (09:09)
[2024-04-07] MEDS: levETIRAcetam 500 MG TABLET 1000 MG PO ×2 (09:09→20:17)
[2024-04-07] MEDS: ASPIRIN 81 MG ENTERIC TABLET PO (09:09)
[2024-04-07] MEDS: ATORVASTATIN 40 MG TABLET PO (09:09)
[2024-04-07] MEDS: MAGNESIUM 13.5 MG TABLET (250 MG MAG GLUCONATE) PO ×2 (09:09→20:17)
[2024-04-07] MEDS: TOLNAFTATE 1% POWDER 45 GM BTL 1 APPLIC TOPICAL ×2 (09:10→17:16)
--- NOTE | 2024-04-07 10:38 | PM.IMPN ---
Progress Note: A&P Assessment and Plan (1) Status epilepticus: Code(s): G40.901 - Epilepsy, unspecified, not intractable, with status epilepticus Status: Acute (2) Breakthrough seizure: Code(s): G40.919 - Epilepsy, unspecified, intractable, without status epilepticus Status: Acute (3) Closed head injury: Qualifiers: Encounter type: initial encounter Qualified Code(s): S09.90XA - Unspecified injury of head, initial encounter Code(s): S09.90XA - Unspecified injury of head, initial encounter Status: Acute (4) Hypothyroidism: Qualifiers: Hypothyroidism type: unspecified Qualified Code(s): E03.9 - Hypothyroidism, unspecified Code(s): E03.9 - Hypothyroidism, unspecified Status: Acute (5) Chronic pain: Qualifiers: Chronic pain type: other chronic pain Qualified Code(s): G89.29 - Other chronic pain Code(s): G89.29 - Other chronic pain Status: Acute (6) Type 2 diabetes mellitus with hyperglycemia, with long-term current use of insulin: Code(s): E11.65 - Type 2 diabetes mellitus with hyperglycemia; Z79.4 - jail (current) use of insulin Status: Acute (7) Chronic indwelling Barajas catheter: Code(s): Z97.8 - Presence of other specified devices Status: Acute (8) Abnormal CT of the abdomen: Code(s): R93.5 - Abnormal findings on diagnostic imaging of other abdominal regions, including retroperitoneum Status: Acute Plan Seizure, postictal confusion patient was brought to hospital because of seizure Patient received Keppra in the ED Patient had another episode of seizure during hospitalization EEG pending Received Keppra 1 g IV once per neurologist recommendation Continue carbonate 750 mg q.8 hours IV Start Ativan 2 mg IV push p.r.n. for active seizure Neuro check : no focal weakness, vision change 04/06: No seizure over the night c/w Keppra 1000 mg b.i.d. p.o., follow-up brain MRI an EEG 04/07: MRI reports 1. T2 and FLAIR hyperintense signal area in the rachel with no postcontrast enhancement. The differential includes multiple sclerosis, mass, encephalitis and hemorrhage. No definite evidence of hemorrhage is seen. Follow-up advised. 2. Multiple scattered T2 and FLAIR hyperintense signal areas suggestive of white matter disease specifically multiple sclerosis. Clinical correlation advised. f/u neurologist recommendation following neurologist recommendation type 2 diabetes mellitus with hyperglycemia. resume the patient's home Lantus. place patient on high-dose sliding scale insulin with Accu-Cheks a.c. HS and hypoglycemia protocol. dehydration Patient has elevated BUN creatinine ratio 21/1 sinus tachycardia. start normal saline IV Follow-up BMP corrected lactic acidosis due to her recurrent seizures. CK is also elevated likely due to seizure. repeat electrolyte panel and lactic acid level in a.m. received IV fluid resuscitation corrected resume patient's home pain medications .Patient does have chronic indwelling Barajas catheter that was reportedly exchanged in the ER. He urine does not suggest infection. Will monitor I&O's closely. Subjective Date/time seen: 04/07/24 10:38 Interval history: I saw examined patient today, patient has no seizure over the night, still has some headache, denies focal weakness, patient is afebrile, blood pressure stable, patient denies focal weakness, no new issue even over the night. brain MRI suspects multiple sclerosis, patient denies blurry vision, focal weakness Exam Narrative: GENERAL: Pleasant, in no acute distress. Well-nourished. - EYES: EOMI. Anicteric. - HENT: Moist mucous membranes. - LUNGS: Clear to auscultation bilaterally, no wheezing, rhonchi, or rales. - CARDIOVASCULAR: Regular rate and rhythm. No murmur. No JVD. - ABDOMEN: Soft, non-tender and non-distended. No palpable masses. - EXTREMIT
[2024-04-07 11:11] LABS: Glucose Point of Care 221 mg/dl (65-105)
[2024-04-07] MEDS: INSULIN ASPART (*BKC) 100 UNITS/ML SUB-Q ×2 (11:35→20:18)
[2024-04-07 15:57] VITALS: BP 135/87; PULSE 84; RESP 14; TEMP 36.1; O2SAT 100
[2024-04-07 16:23] LABS: Glucose Point of Care 194 mg/dl (65-105)
[2024-04-07] MEDS: INSULIN GLARGINE (*BKC) 100 UNITS/ML 12 UNITS SUB-Q (17:15)
--- NOTE | 2024-04-07 17:56 | WPDNEUROPN ---
Progress Note: A&P Assessment and Plan (1) Seizure disorder: Code(s): G40.909 - Epilepsy, unspecified, not intractable, without status epilepticus Status: Acute Assessment and Plan: We should continue the Keppra to 1000 mg twice a day. (2) Abnormal brain MRI: Code(s): R90.89 - Other abnormal findings on diagnostic imaging of central nervous system Status: Acute Assessment and Plan: and its current age and state I suspect that these are chronic and significant for the current problem. I do not see any history or findings to suggest multiple sclerosis. (3) Type 2 diabetes mellitus with hyperglycemia, with long-term current use of insulin: Code(s): E11.65 - Type 2 diabetes mellitus with hyperglycemia; Z79.4 - half-way (current) use of insulin Status: Acute Subjective Date/time seen: 04/07/24 17:56 Interval history: The patient denies any new symptoms. Overall sees tolerating the increased doses of Keppra very well. She has not had any seizures Exam Narrative: no additional new findings were noted. Objective Data Vital Signs Vital Signs: Vital Signs - 24 hr 04/06/24 23:19 04/07/24 05:20 04/07/24 08:00 Temperature 36.8 C 37.0 C 36.3 C L Pulse Rate 86 83 75 Respiratory Rate 13 13 14 Blood Pressure 147/58 H 142/59 H 96/59 L Pulse Oximetry 95 95 95 Oxygen Delivery 04/07/24 09:09 04/07/24 15:57 Temperature 36.1 C L Pulse Rate 84 Respiratory Rate 14 Blood Pressure 135/87 Pulse Oximetry 100 Oxygen Delivery Room Air Intake/Output Intake/Output: Intake & Output 04/04/24 04/05/24 04/06/24 04/07/24 23:59 23:59 23:59 23:59 Intake Total 3592.0 1330 2060 2906 Output Total 3550 3000 3175 5250 Balance 42.0 -3669 -5895 -7566 Meds/Results Medications: Active Medications Generic Name Dose Route Start Last Admin Trade Name Freq PRN Reason Stop Dose Admin Hydrocodone Bitart/Acetaminophen 1 tab 04/03/24 03:00 04/07/24 17:16 Hydrocodone/Acetaminophen (*Crx) 5-325 Mg Tablet PO 1 tab Q4H PRN Administration Pain7-10 Aspirin 81 mg 04/03/24 09:00 04/07/24 09:09 Aspirin 81 Mg Enteric Tablet PO 81 mg DAILY DARYA Administration Atorvastatin Calcium 40 mg 04/03/24 09:00 04/07/24 09:09 Atorvastatin 40 Mg Tablet PO 40 mg DAILY DARYA Administration Cyclobenzaprine HCl 10 mg 04/03/24 09:00 04/07/24 17:16 Cyclobenzaprine Hcl 10 Mg Tablet PO 10 mg BID DARYA Administration Dextrose 12.5 gm 04/03/24 03:05 Dextrose 50% 25 Gm/50 Ml Syringe IV PUSH PRN PRN Hypoglycemia Protocol Docusate Sodium 100 mg 04/03/24 09:00 04/07/24 09:09 Docusate Sodium 100 Mg Capsule PO 100 mg DAILY DARYA Administration Duloxetine HCl 60 mg 04/03/24 09:00 04/07/24 09:09 Duloxetine Hcl 60 Mg Capsule.Dr PO 60 mg DAILY DARYA Administration Enoxaparin Sodium 40 mg 04/03/24 09:00 04/07/24 09:08 Enoxaparin 40 Mg/0.4 Ml Syringe SUB-Q 40 mg Q12HR DARYA Administration Glucagon 1 mg 04/03/24 03:05 Glucagon For Inj 1 Mg Vial IM PRN PRN Hypoglycemia Protocol Glucose 15 gm 04/03/24 03:05 Glucose Oral Gel 15 Gm Of Glucse In 37.5 Gm Tube PO PRN PRN Hypoglycemia Protocol Dextrose 1,000 mls @ 100 mls/hr 04/03/24 03:05 Dextrose 5% 1,000 Ml IVPB PRN PRN Hypoglycemia Protocol Insulin Aspart 2 - 4 units 04/03/24 21:00 04/06/24 20:34 Insulin Aspart (*Bkc) 100 Units/Ml SUB-Q 2 units HS DARYA Administration Protocol Insulin Aspart 4 - 8 units 04/03/24 08:00 04/07/24 16:44 Insulin Aspart (*Bkc) 100 Units/Ml SUB-Q Not Given TIDWM [facility] Protocol Insulin Glargine 12 units 04/03/24 18:00 04/07/24 17:15 Insulin Glargine (*Bkc) 100 Units/Ml SUB-Q 12 units QPM DARYA Administration Levetiracetam 1,000 mg 04/05/24 21:00 04/07/24 09:09 Levetiracetam 500 Mg Tablet PO 1,000 mg Q12HR DARYA Administration
[2024-04-07 19:45] VITALS: BP 143/64; PULSE 94; RESP 18; TEMP 36.6; O2SAT 95
[2024-04-07 20:11] LABS: Glucose Point of Care 262 mg/dl (65-105)
[2024-04-08 04:22] VITALS: BP 107/51; PULSE 86; RESP 16; TEMP 36.5; O2SAT 96
[2024-04-08] MEDS: LEVOTHYROXINE SODIUM 88 MCG TABLET PO (05:39)
[2024-04-08] MEDS: HYDROcodone/acetaminophen (*CRX) 5-325 MG TABLET 1 TAB PO ×4 (07:17→22:42)
[2024-04-08 07:58] LABS: Glucose Point of Care 167 mg/dl (65-105)
[2024-04-08] MEDS: DULoxetine HCL 60 MG CAPSULE.DR PO (09:31)
[2024-04-08] MEDS: CYCLOBENZAPRINE HCL 10 MG TABLET PO ×2 (09:31→16:51)
[2024-04-08] MEDS: ENOXAPARIN 40 MG/0.4 ML SYRINGE SUB-Q ×2 (09:31→21:25)
[2024-04-08] MEDS: DOCUSATE SODIUM 100 MG CAPSULE PO (09:31)
[2024-04-08] MEDS: levETIRAcetam 500 MG TABLET 1000 MG PO ×2 (09:31→21:25)
[2024-04-08] MEDS: ASPIRIN 81 MG ENTERIC TABLET PO (09:31)
[2024-04-08] MEDS: METOPROLOL SUCCINATE EXT REL 25 MG TABCR PO (09:31)
[2024-04-08] MEDS: SITagliptin PHOSPHATE 100 MG TABLET PO (09:31)
[2024-04-08] MEDS: ATORVASTATIN 40 MG TABLET PO (09:31)
[2024-04-08] MEDS: SERTRALINE HCL 50 MG TABLET PO (09:31)
[2024-04-08] MEDS: MAGNESIUM 13.5 MG TABLET (250 MG MAG GLUCONATE) PO ×2 (09:31→21:25)
[2024-04-08] MEDS: TOLNAFTATE 1% POWDER 45 GM BTL 1 APPLIC TOPICAL ×2 (09:32→16:59)
--- NOTE | 2024-04-08 11:16 | PM.IMPN ---
Progress Note: A&P Assessment and Plan (1) Status epilepticus: Code(s): G40.901 - Epilepsy, unspecified, not intractable, with status epilepticus Status: Acute (2) Breakthrough seizure: Code(s): G40.919 - Epilepsy, unspecified, intractable, without status epilepticus Status: Acute (3) Closed head injury: Qualifiers: Encounter type: initial encounter Qualified Code(s): S09.90XA - Unspecified injury of head, initial encounter Code(s): S09.90XA - Unspecified injury of head, initial encounter Status: Acute (4) Hypothyroidism: Qualifiers: Hypothyroidism type: unspecified Qualified Code(s): E03.9 - Hypothyroidism, unspecified Code(s): E03.9 - Hypothyroidism, unspecified Status: Acute (5) Chronic pain: Qualifiers: Chronic pain type: other chronic pain Qualified Code(s): G89.29 - Other chronic pain Code(s): G89.29 - Other chronic pain Status: Acute (6) Type 2 diabetes mellitus with hyperglycemia, with long-term current use of insulin: Code(s): E11.65 - Type 2 diabetes mellitus with hyperglycemia; Z79.4 - senior care (current) use of insulin Status: Acute (7) Chronic indwelling Barajas catheter: Code(s): Z97.8 - Presence of other specified devices Status: Acute (8) Abnormal CT of the abdomen: Code(s): R93.5 - Abnormal findings on diagnostic imaging of other abdominal regions, including retroperitoneum Status: Acute Plan # Seizure, postictal confusion patient was brought to hospital because of seizure Patient received Keppra in the ED Patient had another episode of seizure during hospitalization EEG pending Received Keppra 1 g IV once per neurologist recommendation Continue carbonate 750 mg q.8 hours IV Start Ativan 2 mg IV push p.r.n. for active seizure Neuro check : no focal weakness, vision change c/w Keppra 1000 mg b.i.d. p.o. 04/07: MRI reports 1. T2 and FLAIR hyperintense signal area in the rachel with no postcontrast enhancement. The differential includes multiple sclerosis, mass, encephalitis and hemorrhage. No definite evidence of hemorrhage is seen. Follow-up advised. 2. Multiple scattered T2 and FLAIR hyperintense signal areas suggestive of white matter disease specifically multiple sclerosis. Clinical correlation advised. f/u neurologist recommendation following neurologist recommendation EEG pending # type 2 diabetes mellitus with hyperglycemia. resume the patient's home Lantus. place patient on high-dose sliding scale insulin with Accu-Cheks a.c. HS and hypoglycemia protocol. # dehydration Patient has elevated BUN creatinine ratio 21/ sinus tachycardia. treated with IV fluid resolved # lactic acidosis due to her recurrent seizures. CK is also elevated likely due to seizure. repeat electrolyte panel and lactic acid level in a.m. received IV fluid resuscitation corrected # chronic pain: resume patient's home pain medications # chronic indwelling Barajas catheter.Patient does have chronic indwelling Barajas catheter that was reportedly exchanged in the ER. He urine does not suggest infection. Will monitor I&O's closely. # DVT prophylaxis: Lovenox Subjective Date/time seen: 04/08/24 11:16 Interval history: no overnight events. Barajas in place which is chronic. No further seizures. [facility] resident. Review of Systems Review of Systems: All systems reviewed & are unremarkable except as noted in HPI and below Exam Narrative: GENERAL: Pleasant, in no acute distress. Well-nourished. - EYES: EOMI. Anicteric. - HENT: Moist mucous membranes. - LUNGS: Clear to auscultation bilaterally, no wheezing, rhonchi, or rales. - CARDIOVASCULAR: Regular rate and rhythm. No murmur. No JVD. - ABDOMEN: Soft, non-tender and non-distended. No palpable masses. - EXTREMITIES: No edema. Peripheral pulses 2+. Non-tender. Chronic deformity - NEURO
[2024-04-08 11:26] LABS: Glucose Point of Care 295 mg/dl (65-105)
[2024-04-08] MEDS: INSULIN ASPART (*BKC) 100 UNITS/ML SUB-Q ×3 (11:45→21:24)
[2024-04-08 16:00] VITALS: BP 116/66; PULSE 88; RESP 16; TEMP 36.4; O2SAT 100
[2024-04-08 16:31] LABS: Glucose Point of Care 231 mg/dl (65-105)
[2024-04-08] MEDS: INSULIN GLARGINE (*BKC) 100 UNITS/ML 12 UNITS SUB-Q (16:51)
[2024-04-08 19:59] VITALS: BP 122/65; PULSE 81; RESP 20; TEMP 36.4; O2SAT 100
[2024-04-08 20:12] LABS: Glucose Point of Care 238 mg/dl (65-105)
[2024-04-09 04:38] VITALS: BP 130/53; PULSE 79; RESP 18; TEMP 36.6; O2SAT 96
[2024-04-09 06:36] LABS: Basophils Absolute Auto 0.1 K/mm3 (0.0-0.1); Basophils Percent Auto 0.5 % (0.2-1.2); Eosinophils Absolute Auto 0.3 K/mm3 (0-0.3); Eosinophils Percent Auto 3.1 % (0-4.4); Hematocrit 35.9 % (37.0-47.0); Hemoglobin 11.6 g/dL (12.0-15.0); Immature Granulocyte Absolute 0.05 K/mm3 (0.00-0.031); Immature Granulocyte Percent A 0.5 % (0-0.5); Lymphocytes Absolute Auto 1.37 K/mm3 (0.9-3.2); Lymphocytes Percent Auto 14.1 % (18.3-44.2); Mean Corpuscular HGB Conc 32.3 g/dl (32-36); Mean Corpuscular Hemoglobin 28.9 pg (26-34); Mean Corpuscular Volume 89.5 fl (80-100); Mean Platelet Volume 9.5 fl (7.4-10.4); Monocytes Absolute Auto 0.9 K/mm3 (0.1-0.6); Monocytes Percent Auto 8.9 % (2.6-8.5); Neutrophils Absolute Auto 7.1 K/mm3 (1.3-6.7); Neutrophils Percent Auto 72.9 % (45.5-73.1); Platelet Count Result 209 k/mm3 (150-375); Red Blood Count 4.01 M/mm3 (4.2-5.4); Red Cell Distribution Width 14.1 % (11.5-14.5); White Blood Count 9.7 K/mm3 (4.5-10.0)
[2024-04-09] MEDS: LEVOTHYROXINE SODIUM 88 MCG TABLET PO (06:48)
[2024-04-09] MEDS: HYDROcodone/acetaminophen (*CRX) 5-325 MG TABLET 1 TAB PO ×2 (06:48→20:34)
[2024-04-09 06:51] LABS: Alanine Aminotransferase 27 U/L (6-35); Albumin Level 3.8 g/dL (3.5-5.1); Alkaline Phosphatase 146 U/L (38-126); Anion Gap 5 mmol/L (4-12); Aspartate Amino Transferase 38 U/L (14-36); Blood Urea Nitrogen 19 mg/dL (7-17); Calcium 9.3 mg/dL (8.4-10.2); Carbon Dioxide 30 mmol/L (22-30); Chloride 99 mmol/L (98-107); Estimated CRCL calculation 63 ml/min; Estimated Glomerular Filt Rate 50; Glucose 186 mg/dL (65-110); Magnesium 1.6 mg/dL (1.6-2.3); Potassium 4.5 mmol/L (3.4-5.0); Sodium 134 mmol/L (137-145)
[2024-04-09 08:00] VITALS: PULSE 79; RESP 18; O2SAT 96
[2024-04-09 08:11] LABS: Glucose Point of Care 179 mg/dl (65-105)
[2024-04-09] MEDS: ENOXAPARIN 40 MG/0.4 ML SYRINGE SUB-Q ×2 (09:47→20:33)
[2024-04-09] MEDS: METOPROLOL SUCCINATE EXT REL 25 MG TABCR PO (09:48)
[2024-04-09] MEDS: SITagliptin PHOSPHATE 100 MG TABLET PO (09:48)
[2024-04-09] MEDS: SERTRALINE HCL 50 MG TABLET PO (09:48)
[2024-04-09] MEDS: ATORVASTATIN 40 MG TABLET PO (09:48)
[2024-04-09] MEDS: DOCUSATE SODIUM 100 MG CAPSULE PO (09:48)
[2024-04-09] MEDS: MAGNESIUM 13.5 MG TABLET (250 MG MAG GLUCONATE) PO ×2 (09:48→20:34)
[2024-04-09] MEDS: DULoxetine HCL 60 MG CAPSULE.DR PO (09:48)
[2024-04-09] MEDS: levETIRAcetam 500 MG TABLET 1000 MG PO ×2 (09:48→20:34)
[2024-04-09] MEDS: ASPIRIN 81 MG ENTERIC TABLET PO (09:48)
[2024-04-09] MEDS: CYCLOBENZAPRINE HCL 10 MG TABLET PO ×2 (09:48→18:16)
[2024-04-09] MEDS: TOLNAFTATE 1% POWDER 45 GM BTL 1 APPLIC TOPICAL ×2 (09:49→18:16)
[2024-04-09] MEDS: LIDOCAINE 5% PATCH 1 PATCH TOPICAL (09:49)
--- NOTE | 2024-04-09 11:00 | WPDNEUROPN ---
Progress Note: A&P Assessment and Plan (1) White matter changes: Status: Acute (2) Abnormal brain MRI: Code(s): R90.89 - Other abnormal findings on diagnostic imaging of central nervous system Status: Acute (3) Seizure disorder: Code(s): G40.909 - Epilepsy, unspecified, not intractable, without status epilepticus Status: Acute Plan Ms. Cote is a 63 year old female with a history of diabetes, hypothyroidism, epilepsy, chronic venous stasis dermatitis RLE, Charcot arthropathy, depression presenting from [facility] due to unwitnessed fall. Upon transfer to our ER she had two witnessed seizures. No provoking factors identified. She has not had any additional seizures since admission. MRI brain done during admission showed some white matter changes, which the Radiologist read as suggestive of MS. Seems most likely chronic white matter changes, but will still proceed with work-up. I have ordered MRI cervical and thoracic spine with and without contrast. If negative, I would recommend spinal tap to look for oligoclonal bands. As for seizures, continue Keppra 1000mg BID. Subjective Date/time seen: 04/09/24 11:00 Interval history: Ms. Cote is a 63 year old female with a history of diabetes, hypothyroidism, epilepsy, chronic venous stasis dermatitis RLE, carcot arthropathy, depression presenting from [facility] due to unwitnessed fall. Patient was found lying on the floor shortly after having a conversation with nursing staff. EMS was called and patient was initially confused but mental status did improve by the time she arrived to the ER. When she presented to the ER she again became confused and then had a witnessed seizure lasting 2-3 minutes described as GTC. She did have a subsequent seizure in the ER. She received Ativan 2mg and did not have any additional seizures. CT head in the ER was negative for acute changes. Her labs were only revealing for elevated lactic acid. No signs of infection, UA was negative. She takes Keppra 750mg BID. Patient reports that she started having seizures around age 17. She has previously been on phenobarbital, Dilantin, and Depakote. She does not currently see a neurologist. Family history of positive for epilepsy in her daughter and brother. MRI brain done during admission showed some white matter changes, which the Radiologist read as suggestive of MS. Review of Systems Review of Systems: All systems reviewed & are unremarkable except as noted in HPI and below Exam Const: General: comfortable and no acute distress HENMT: Mouth: Yes moist mucous membranes Eyes: Pupils: Equal, round and reactive pupils present Other: dysconjugate gaze Resp: Effort & Inspection: normal respiratory effort Skin: General skin exam: normal color Neuro: Other: Awake, alert, PERRL, dysconjugate gaze (L eye does not fully abduct with L gaze), otherwise face is symmetric, able to move all extremities against gravity. Sensation reduced in RUE compared to L. Extrem: General: edema Psych: Mental Status: mental status grossly normal Objective Data Vital Signs Vital Signs: Vital Signs - 24 hr 04/08/24 16:00 04/08/24 19:59 04/09/24 04:38 Temperature 36.4 C 36.4 C L 36.6 C Pulse Rate 88 81 79 Respiratory Rate 16 20 18 Blood Pressure 116/66 122/65 130/53 L Pulse Oximetry 100 100 96 Intake/Output Intake/Output: Intake & Output 04/06/24 04/07/24 04/08/24 04/09/24 23:59 23:59 23:59 23:59 Intake Total 2060 2906 1908 240 Output Total 3175 5250 1850 1400 [facility]6160 [id number] 58 -1160 Meds/Results Medications: Active Medications Generic Name Dose Route Start Last Admin Trade Name Freq PRN Reason Stop Dose Admin Hydrocodone Bitart/Acetaminophen 1 tab 04/03/24 03:00 04/09/24 06:48 Hydrocodone/Acetaminophen (*Crx) 5-325 Mg Tablet PO 1 tab Q4H PRN Administration Pain7-10 Aspirin 81 mg 04/03/24 0
[2024-04-09 11:43] LABS: Glucose Point of Care 206 mg/dl (65-105)
--- NOTE | 2024-04-09 12:03 | PM.IMPN ---
Progress Note: A&P Assessment and Plan (1) Status epilepticus: Code(s): G40.901 - Epilepsy, unspecified, not intractable, with status epilepticus Status: Acute (2) Breakthrough seizure: Code(s): G40.919 - Epilepsy, unspecified, intractable, without status epilepticus Status: Acute (3) Closed head injury: Qualifiers: Encounter type: initial encounter Qualified Code(s): S09.90XA - Unspecified injury of head, initial encounter Code(s): S09.90XA - Unspecified injury of head, initial encounter Status: Acute (4) Hypothyroidism: Qualifiers: Hypothyroidism type: unspecified Qualified Code(s): E03.9 - Hypothyroidism, unspecified Code(s): E03.9 - Hypothyroidism, unspecified Status: Acute (5) Chronic pain: Qualifiers: Chronic pain type: other chronic pain Qualified Code(s): G89.29 - Other chronic pain Code(s): G89.29 - Other chronic pain Status: Acute (6) Type 2 diabetes mellitus with hyperglycemia, with long-term current use of insulin: Code(s): E11.65 - Type 2 diabetes mellitus with hyperglycemia; Z79.4 - senior living (current) use of insulin Status: Acute (7) Chronic indwelling Barajas catheter: Code(s): Z97.8 - Presence of other specified devices Status: Acute (8) Abnormal CT of the abdomen: Code(s): R93.5 - Abnormal findings on diagnostic imaging of other abdominal regions, including retroperitoneum Status: Acute Plan # Seizure, postictal confusion patient was brought to hospital because of seizure Patient received Keppra in the ED Patient had another episode of seizure during hospitalization EEG pending Received Keppra 1 g IV once per neurologist recommendation Continue carbonate 750 mg q.8 hours IV Start Ativan 2 mg IV push p.r.n. for active seizure Neuro check : no focal weakness, vision change c/w Keppra 1000 mg b.i.d. p.o. 04/07: MRI reports 1. T2 and FLAIR hyperintense signal area in the rachel with no postcontrast enhancement. The differential includes multiple sclerosis, mass, encephalitis and hemorrhage. No definite evidence of hemorrhage is seen. Follow-up advised. 2. Multiple scattered T2 and FLAIR hyperintense signal areas suggestive of white matter disease specifically multiple sclerosis. Clinical correlation advised. f/u neurologist recommendation following neurologist recommendation EEG pending For her abnormal MRI brain finding further workup cervical thoracic planned as per Neurology. # type 2 diabetes mellitus with hyperglycemia. resume the patient's home Lantus. place patient on high-dose sliding scale insulin with Accu-Cheks a.c. HS and hypoglycemia protocol. # dehydration Patient has elevated BUN creatinine ratio 21/1 sinus tachycardia. treated with IV fluid resolved # lactic acidosis due to her recurrent seizures. CK is also elevated likely due to seizure. repeat electrolyte panel and lactic acid level in a.m. received IV fluid resuscitation corrected # chronic pain: resume patient's home pain medications # chronic indwelling Barajas catheter.Patient does have chronic indwelling Barajas catheter that was reportedly exchanged in the ER. He urine does not suggest infection. Will monitor I&O's closely. # DVT prophylaxis: Lovenox Subjective Date/time seen: 04/09/24 12:04 Interval history: No overnight events. No new complaints. No further seizures. EEG performed this a.m.. Labs reviewed. Review of Systems Review of Systems: All systems reviewed & are unremarkable except as noted in HPI and below Exam Narrative: GENERAL: Pleasant, in no acute distress. Well-nourished. - EYES: EOMI. Anicteric. - HENT: Moist mucous membranes. - LUNGS: Clear to auscultation bilaterally, no wheezing, rhonchi, or rales. - CARDIOVASCULAR: Regular rate and rhythm. No murmur. No JVD. - ABDOMEN: Soft, non-tender and non-distended. No palpab
[2024-04-09] MEDS: INSULIN ASPART (*BKC) 100 UNITS/ML SUB-Q ×2 (13:21→20:35)
[2024-04-09 16:00] VITALS: BP 118/75; PULSE 96; RESP 18; TEMP 35.8; O2SAT 100
[2024-04-09 16:38] LABS: Glucose Point of Care 177 mg/dl (65-105)
[2024-04-09] MEDS: polyethylene glycoL 3350 17 GM POWD.PACK PO (18:16)
[2024-04-09] MEDS: INSULIN GLARGINE (*BKC) 100 UNITS/ML 12 UNITS SUB-Q (18:18)
[2024-04-09 20:00] LABS: Glucose Point of Care 233 mg/dl (65-105)
[2024-04-09 21:05] VITALS: BP 146/68; PULSE 88; RESP 20; TEMP 36.2; O2SAT 100
[2024-04-10] MEDS: HYDROcodone/acetaminophen (*CRX) 5-325 MG TABLET 1 TAB PO ×3 (00:49→14:41)
[2024-04-10 04:58] VITALS: BP 117/59; PULSE 85; RESP 20; TEMP 36.3; O2SAT 96
[2024-04-10] MEDS: LEVOTHYROXINE SODIUM 88 MCG TABLET PO (06:22)
[2024-04-10 07:51] LABS: Glucose Point of Care 160 mg/dl (65-105)
--- NOTE | 2024-04-10 08:25 | WPDNEUROLOGY ---
Neurology EEG Report General Information Date of Study: 04/09/24 TEST eeg DIAGNOSIS seizure CONDITION OF RECORDING awake drowsy and sleep EEG NUMBER [id number] CLINICAL HISTORY patient reports she has ongoing history of epilepsy ever since she was 17 years old and her seizures were well controlled up until last week when she had 3 to 4 seizures in 2 days EEG DESCRIPTION bihemispheric medium to high-voltage 2 to 3 hertz per 2nd delta activity seen during wakefulness with left hemispheric dominance and also with poor jennifer posterior gradient bilateral symmetrical sleep activity is noted during sleep with multiple EKG artifacts. Hyperventilation not done. Photic stimulation not done. Non paroxysmal. Focal. Lateralizing. IMPRESSION Abnormal record due to the presence of bihemispheric slow activity with left hemispheric dominance even though there is no paroxysmal discharge throughout the tracing. These abnormalities are suggestive of underlying cerebral dysfunction with possibility of focal involvement and postictal state. Clinical correlation recommended
[2024-04-10] MEDS: CYCLOBENZAPRINE HCL 10 MG TABLET PO ×2 (08:40→17:07)
[2024-04-10] MEDS: ATORVASTATIN 40 MG TABLET PO (08:40)
[2024-04-10] MEDS: SITagliptin PHOSPHATE 100 MG TABLET PO (08:40)
[2024-04-10] MEDS: METOPROLOL SUCCINATE EXT REL 25 MG TABCR PO (08:40)
[2024-04-10] MEDS: SERTRALINE HCL 50 MG TABLET PO (08:40)
[2024-04-10] MEDS: ASPIRIN 81 MG ENTERIC TABLET PO (08:40)
[2024-04-10] MEDS: ENOXAPARIN 40 MG/0.4 ML SYRINGE SUB-Q (08:40)
[2024-04-10] MEDS: DOCUSATE SODIUM 100 MG CAPSULE PO (08:40)
[2024-04-10] MEDS: MAGNESIUM 13.5 MG TABLET (250 MG MAG GLUCONATE) PO (08:41)
[2024-04-10] MEDS: DULoxetine HCL 60 MG CAPSULE.DR PO (08:41)
[2024-04-10] MEDS: levETIRAcetam 500 MG TABLET 1000 MG PO (08:41)
[2024-04-10] MEDS: TOLNAFTATE 1% POWDER 45 GM BTL 1 APPLIC TOPICAL ×2 (08:41→17:08)
--- NOTE | 2024-04-10 09:14 | PM.DS ---
DS: Admitting Diagnosis Discharge Date 04/10/2024 Admitting Diagnosis seizures DS: Discharge Diagnosis Discharge Diagnosis (1) Status epilepticus: Code(s): G40.901 - Epilepsy, unspecified, not intractable, with status epilepticus Status: Acute (2) Breakthrough seizure: Code(s): G40.919 - Epilepsy, unspecified, intractable, without status epilepticus Status: Acute (3) Closed head injury: Qualifiers: Encounter type: initial encounter Qualified Code(s): S09.90XA - Unspecified injury of head, initial encounter Code(s): S09.90XA - Unspecified injury of head, initial encounter Status: Acute (4) Hypothyroidism: Qualifiers: Hypothyroidism type: unspecified Qualified Code(s): E03.9 - Hypothyroidism, unspecified Code(s): E03.9 - Hypothyroidism, unspecified Status: Acute (5) Chronic pain: Qualifiers: Chronic pain type: other chronic pain Qualified Code(s): G89.29 - Other chronic pain Code(s): G89.29 - Other chronic pain Status: Acute (6) Type 2 diabetes mellitus with hyperglycemia, with long-term current use of insulin: Code(s): E11.65 - Type 2 diabetes mellitus with hyperglycemia; Z79.4 - tank terminal gauger (current) use of insulin Status: Acute (7) Chronic indwelling Barajas catheter: Code(s): Z97.8 - Presence of other specified devices Status: Acute (8) Abnormal CT of the abdomen: Code(s): R93.5 - Abnormal findings on diagnostic imaging of other abdominal regions, including retroperitoneum Status: Acute DS: Summary Hospital Course Hospital Course: # Seizure, postictal confusion patient was brought to hospital because of seizure Patient received Keppra in the ED Patient had another episode of seizure during hospitalization EEG abnormal without any seizure-like activity Received Keppra 1 g IV once per neurologist recommendation placed on Ativan 2 mg IV push p.r.n. for active seizure Neuro check : no focal weakness, vision change c/w Keppra 1000 mg b.i.d. p.o. which will be continued at discharge 04/07: MRI reports 1. T2 and FLAIR hyperintense signal area in the rachel with no postcontrast enhancement. The differential includes multiple sclerosis, mass, encephalitis and hemorrhage. No definite evidence of hemorrhage is seen. Follow-up advised. 2. Multiple scattered T2 and FLAIR hyperintense signal areas suggestive of white matter disease specifically multiple sclerosis. Clinical correlation advised. f/u neurologist recommendation following neurologist recommendation EEG pending For her abnormal MRI brain finding further workup cervical thoracic planned as per Neurology. however patient refused and wants to do no further workup. She is advised to follow up with Neurology as an outpatient basis to continue the discussion # type 2 diabetes mellitus with hyperglycemia. resume the patient's home Lantus. place patient on high-dose sliding scale insulin with Accu-Cheks a.c. HS and hypoglycemia protocol. # dehydration Patient has elevated BUN creatinine ratio 20/11 sinus tachycardia. treated with IV fluid resolved # lactic acidosis due to her recurrent seizures. CK is also elevated likely due to seizure. repeat electrolyte panel and lactic acid level in a.m. received IV fluid resuscitation corrected # chronic pain: resume patient's home pain medications # chronic indwelling Barajas catheter.Patient does have chronic indwelling Barajas catheter that was reportedly exchanged in the ER. He urine does not suggest infection. Will monitor I&O's closely. # DVT prophylaxis: Lovenox Time Spent with Patient Time attestation: Total time spent providing and/or coordinating discharge services: 35 minutes Exam Narrative: GENERAL: Pleasant, in no acute distress. Well-nourished. - EYES: EOMI. Anicteric. - HENT: Moist mucous membranes. - LUNGS: Clear to auscultation bilatera
--- NOTE | 2024-04-10 11:22 | PCNWS ---
Weekly nutritional screen. Patient is tolerating current Diabetic diet with adequate intake at 75-100%. No weight loss reported. No nutritional needs at this time.
[2024-04-10 11:28] LABS: Glucose Point of Care 352 mg/dl (65-105)
[2024-04-10] MEDS: INSULIN ASPART (*BKC) 100 UNITS/ML SUB-Q ×2 (11:49→17:08)
[2024-04-10 14:00] VITALS: BP 130/73; PULSE 90; RESP 20; TEMP 37.2; O2SAT 95
[2024-04-10 16:27] LABS: Glucose Point of Care 232 mg/dl (65-105)
[2024-04-10] MEDS: INSULIN GLARGINE (*BKC) 100 UNITS/ML 12 UNITS SUB-Q (17:07)
[2024-04-10 18:11] LABS: Influenza A QL RT-PCR Negative (Negative); Influenza B QL RT-PCR Negative (Negative); RSV RNA, RT-PCR Negative (Negative); SARS-CoV-2 RNA PCR Negative (Negative)
== END 2024-04-10 19:25 | DRG 101 ==
LOC: ANHED 04-03 00:25 → ANHIMU 04-03 00:43 → ANH3MEDSUR 04-06 13:25
PROVIDERS: Hospitalist; Admitting Provider Internal Medicine; Emergency Provider Physician Assistant; PCP Hospitalist; Visit Provider Internal Medicine
DX: G40.901 Epilepsy, unspecified, not intractable, with status epilepticus (principal); E87.20 Acidosis, unspecified; Z68.42 Body mass index [BMI] 45.0-49.9, adult; E87.1 Hypo-osmolality and hyponatremia; S00.83XA Contusion of other part of head, initial encounter; W19.XXXA Unspecified fall, initial encounter; E11.610 Type 2 diabetes mellitus with diabetic neuropathic arthropathy; E11.65 Type 2 diabetes mellitus with hyperglycemia; E86.0 Dehydration; E03.9 Hypothyroidism, unspecified; E78.5 Hyperlipidemia, unspecified; E66.01 Morbid (severe) obesity due to excess calories; F41.9 Anxiety disorder, unspecified; F32.A Depression, unspecified; G89.29 Other chronic pain; I87.8 Other specified disorders of veins; I10 Essential (primary) hypertension; K76.0 Fatty (change of) liver, not elsewhere classified; R33.9 Retention of urine, unspecified; Z11.52 Encounter for screening for COVID-19; Z79.4 Long term (current) use of insulin; Z79.84 Long term (current) use of oral hypoglycemic drugs; Z79.82 Long term (current) use of aspirin; Z90.49 Acquired absence of other specified parts of digestive tract; Z86.73 Personal history of transient ischemic attack (TIA), and cerebral infarction without residual deficits; Z66 Do not resuscitate
CPT/HCPCS: 36415; 70450; 70486; 70551; 71045; 72125; 73521; 73564; 80053; 80177; 80307; 81001; 82010; 82550; 82948; 83605; 83735; 84100; 84439; 84443; 84480; 84484; 85025; 85610; 85730; 87637; 93005; 93880; 95816; 96365; 96375; 99285; A9270; A9577; G0378; J1650; J1815; J1953; J2060; J7030

== ENCOUNTER 2024-05-26 22:21 | Inpatient (IN) | payer MEDICARE, MEDICAID, SELFPAY ==
--- NOTE | ~2024-05-26 | CT_ITS ---
EXAMINATION: CTA brain carotid DATE: 05/27/2024 00:28 INDICATION: Seizure. Labile affect. TECHNIQUE: Computed tomographic angiography (CTA) of the head was performed without and with 100 mL O mnipaque-350 intravenous contrast. CTA of the neck was performed with intravenous contrast. Automated exposure control and iterative reconstruction technique were employed. The dose-length product was 1 815.42 mGy-cm. Maximum intensity projection and volume rendered 3D-reconstructions were created by darwin technologist on a separate workstation. COMPARISON: Head CT 04/02/2024, brain MRI 04/06/2024 FINDINGS: HEAD CTA: There are scattered areas of low attenuation in the cerebral white matter. There is no intr acranial hemorrhage, acute infarction, or abnormal intracranial mass lesion. The ventricles are brent l in size. The orbits are normal. There is left posterior scalp soft tissue swelling. There is minima l mucosal thickening in the paranasal sinuses. The mastoid air cells are normal. The orbits are brent l. Right vertebral artery is dominant. There is no significant stenosis of basilar artery or the post erior cerebral arteries. There is no significant stenosis of the intracranial internal carotid arteri es or anterior or middle cerebral arteries. Anterior communicating artery is normal. The posterior co mmunicating arteries are normal. There is no aneurysm. NECK CTA: There are no pathologically enlarged lymph nodes. There is no significant stenosis of the v ertebral arteries. There is plaque in the proximal internal carotid arteries. There is 0% stenosis of the proximal right internal carotid artery relative to normal distal artery lumen diameter (NASCET c riteria). There is 0% stenosis of the proximal left internal carotid artery relative to normal distal artery lumen diameter. There is severe cervical spondylosis. IMPRESSION: 1. Mild nonspecific cerebral white matter disease, which likely represents chronic small vessel ische maritza disease. 2. No aneurysm or significant intracranial arterial stenosis. 3. 0% stenosis of the proximal internal carotid arteries relative to normal distal artery lumen diam eters (NASCET criteria). Reviewed, dictated and finalized at location E. IMPRESSION: 1. Mild nonspecific cerebral white matter disease, which likely represents national flatbed truck driver sujata small vessel ischemic disease. 2. No aneurysm or significant intracranial arterial stenosis. 3. 0% stenosis of the proximal internal carotid arteries relative to normal di stal artery lumen diameters (NASCET criteria).
--- NOTE | ~2024-05-26 | XR_ITS ---
EXAMINATION: XR chest 1V portable DATE: 05/26/2024 22:56 INDICATION: Chest pain. TECHNIQUE: A single frontal view of the chest was obtained. COMPARISON: Chest single view 04/02/24, CT abdomen and pelvis 01/31/2024 FINDINGS: The lung volumes are small. There is mild atelectasis in the lower lung zones. No pleural e ffusion or pneumothorax. The heart size is normal. IMPRESSION: 1. Small lung volumes with mild atelectasis in the lower lung zones. Reviewed, dictated and finalized at location E.
[2024-05-26 22:25] VITALS: BP 149/98; PULSE 116; RESP 18; TEMP 36.4; O2SAT 97
--- NOTE | 2024-05-26 22:30 | ECG_ITS ---
Test Date: 2024-05-26 22:33:40 Measurements Intervals [place] Rate: 114 P: 31 TX: 190 QRS: -50 QRSD: 78 T: 78 QT: 301 QTc: 416 Interpretive Statements SINUS TACHYCARDIA POSSIBLE LEFT ATRIAL ENLARGEMENT LEFT ANTERIOR FASCICULAR BLOCK ANTEROLATERAL INFARCT, AGE INDETERMINATE ST-T WAVE ABNORMALITY IN HIGH LATERAL LEADS- CONSIDER ISCHEMIA BASELINE ARTIFACT- I, AVR, AVL, AVF, V1-V2 ABNORMAL ECG Compared to ECG 04/02/2024 21:06:39 ANTEROLATERAL INFARCT, AGE INDETERMINATE NOW PRESENT Electronically Signed On 05-27-2024 07:50:22 CDT by Kye Vera D.O.
[2024-05-26 22:31] VITALS: BP 132/90; PULSE 114; PULSE 115; RESP 22; O2SAT 97; O2SAT 98
--- NOTE | 2024-05-26 22:41 | ED.SEIZURE ---
HPI - Seizure General Chief Complaint: Seizure Stated Complaint: seizure Time Seen by Provider: 05/26/24 22:40 Source: patient and EMS Mode of arrival: EMS Limitations: altered mental status History of Present Illness HPI Narrative: Patient presents after reportedly having a seizure approximately 1 minute duration. She has a history of seizures. It is reported that she had received her daily meds. EMS reports that patient was tearful and crying after the episode. Patient remains intermittently tearful crying on exam. She states her daughter epilepsy. She is complaining now having left sided chest pain under her breast. Anti seizure medications per review of [place] documentation: levetiracetam 1000 mg twice daily. Seizure History: Yes Related Data Home Medications Medication Instructions Recorded Confirmed aspirin 81 mg tablet,delayed 81 mg PO DAILY 02/24/24 05/27/24 release atorvastatin 40 mg tablet 40 mg PO DAILY 02/24/24 05/27/24 cyclobenzaprine 10 mg tablet 10 mg PO BID 02/24/24 05/27/24 docusate sodium 100 mg capsule 100 mg PO DAILY 02/24/24 05/27/24 (Colace) duloxetine 60 mg capsule,delayed 60 mg PO DAILY 02/24/24 05/27/24 release insulin aspart U-100 100 unit/mL 1 sliding scale dose subcut 02/24/24 05/27/24 (3 mL) subcutaneous pen (Novolog USEASDIRECTD FlexPen U-100 Insulin aspart) insulin glargine 100 unit/mL (3 12 unit subcut QPM 02/24/24 05/27/24 mL) subcutaneous pen (Basaglar KwikPen U-100 Insulin) levothyroxine 88 mcg capsule 88 mcg PO DAILY 02/24/24 05/27/24 loperamide 2 mg capsule 2 mg PO Q6H PRN Diarrhea 02/24/24 05/27/24 melatonin 5 mg capsule 5 mg PO DAILY PRN Insomnia 02/24/24 05/27/24 metoprolol succinate 25 mg 12.5 mg PO DAILY 02/24/24 05/27/24 tablet,extended release 24 hr ondansetron 8 mg disintegrating 8 mg PO Q8H 02/24/24 05/27/24 tablet polyethylene glycol 3350 17 17 g PO DAILY PRN Constipation 02/24/24 05/27/24 gram/dose oral powder (Miralax) sertraline 50 mg tablet 50 mg PO DAILY 02/24/24 05/27/24 sitagliptin phosphate 100 mg 100 mg PO DAILY 02/24/24 05/27/24 tablet (Januvia) hydrocodone 5 mg-acetaminophen 325 1 tablet PO Q4H PRN Pain 04/03/24 05/27/24 mg tablet lidocaine 4 % topical patch 1 patch topical DAILY 04/03/24 05/27/24 nystatin 100,000 unit/gram topical 1 applic topical BID 04/03/24 05/27/24 powder Allergies Allergy/AdvReac Type Severity Reaction Status Date / Time levofloxacin Allergy Unknown Verified 04/02/24 21:10 metformin Allergy Unknown Verified 04/02/24 21:10 morphine Allergy Unknown Verified 04/02/24 21:10 [facility] Past Medical History Medical History (Updated 05/28/24 @ 11:07 by Tom Gold MD) Abnormal brain MRI Anxiety Arthritis Charcot's joint arthropathy in type 2 diabetes mellitus Bilateral ankles Cholecystectomy planned Chronic hyponatremia 130-133 Chronic indwelling Barajas catheter Chronic pain CVA (cerebral vascular accident) Depression Epilepsy Hepatic steatosis Hyperlipidemia Hypertension Hypothyroidism Insulin dependent diabetes mellitus Morbid obesity with BMI of 45.0-49.9, adult Neuropathy Seizure disorder Urinary retention with incomplete bladder emptying Urinary tract infection due to ESBL Klebsiella Surgical History Surgical History History of ankle surgery Bilateral ankle surgery for Charcot joint History of appendectomy History of X2 History of tonsillectomy and adenoidectomy History of umbilical hernia repair With mesh Hx of cholecystectomy Family History Family History Father Acute myocardial infarction, Onset Age: 55 Mother Dementia Daughter Epilepsy Social History Social History Social History: She reports that she has been in retirement facility since fall. Prior to that she live
[2024-05-26 22:43] LABS: Basophils Absolute Auto 0.1 K/mm3 (0.0-0.1); Basophils Percent Auto 0.6 % (0.2-1.2); Eosinophils Absolute Auto 0.2 K/mm3 (0-0.3); Eosinophils Percent Auto 2.2 % (0-4.4); Hematocrit 39.4 % (37.0-47.0); Hemoglobin 13.1 g/dL (12.0-15.0); Immature Granulocyte Absolute 0.03 K/mm3 (0.00-0.031); Immature Granulocyte Percent A 0.3 % (0-0.5); Lymphocytes Absolute Auto 1.13 K/mm3 (0.9-3.2); Lymphocytes Percent Auto 11.6 % (18.3-44.2); Mean Corpuscular HGB Conc 33.2 g/dl (32-36); Mean Corpuscular Hemoglobin 28.5 pg (26-34); Mean Corpuscular Volume 85.8 fl (80-100); Mean Platelet Volume 9.4 fl (7.4-10.4); Monocytes Absolute Auto 0.4 K/mm3 (0.1-0.6); Monocytes Percent Auto 4.2 % (2.6-8.5); Neutrophils Absolute Auto 7.9 K/mm3 (1.3-6.7); Neutrophils Percent Auto 81.1 % (45.5-73.1); Platelet Count Result 202 k/mm3 (150-375); Red Blood Count 4.59 M/mm3 (4.2-5.4); Red Cell Distribution Width 13.6 % (11.5-14.5); White Blood Count 9.7 K/mm3 (4.5-10.0)
[2024-05-26 22:53] LABS: Alanine Aminotransferase 37 U/L (6-35); Albumin Level 4.3 g/dL (3.5-5.1); Alkaline Phosphatase 214 U/L (38-126); Anion Gap 14 mmol/L (4-12); Aspartate Amino Transferase 56 U/L (14-36); Bilirubin,Total 0.7 mg/dL (0.2-1.3); Blood Urea Nitrogen 22 mg/dL (7-17); Calcium 9.6 mg/dL (8.4-10.2); Carbon Dioxide 21 mmol/L (22-30); Chloride 97 mmol/L (98-107); Estimated CRCL calculation 68 ml/min; Estimated Glomerular Filt Rate 56; Glucose 358 mg/dL (65-110); Potassium 4.5 mmol/L (3.4-5.0); Sodium 132 mmol/L (137-145)
[2024-05-26 22:55] LABS: Lactic Acid Reflex 4.6 mmol/L (0.7-2.0)
[2024-05-26] MEDS: SODIUM CHLORIDE 0.9% IV 1,000 ML 999 ML IV CONT ×2 (22:55→23:30)
[2024-05-26 22:58] VITALS: BP 152/87; PULSE 118; RESP 14; O2SAT 100
[2024-05-26 23:02] VITALS: BP 164/99; PULSE 117; RESP 12; O2SAT 100
[2024-05-26 23:10] LABS: Magnesium 1.5 mg/dL (1.6-2.3)
[2024-05-26 23:22] LABS: Troponin I 0.028 ng/mL (0.000-0.034)
--- NOTE | 2024-05-26 23:30 | PC.NURSE ---
VORB by SABRA Moreira for 2 mg of Valium IVP for seizure.
[2024-05-26] MEDS: MAGNESIUM SULF 1 GM/D5W 100 ML 1 GM/100 ML BAG IVPB (23:31)
[2024-05-26 23:33] VITALS: BP 189/166; PULSE 138; RESP 22; O2SAT 96
--- NOTE | 2024-05-26 23:35 | PC.NURSE ---
EDP at bedside and advises due to labile state, administer an additional 3 mg of Valium IVP. Total of 5 mg of Valium administered IVP.
[2024-05-26 23:38] VITALS: O2SAT 97
[2024-05-26] MEDS: diazePAM INJ (*CRX) 10 MG/2 ML SYRINGE 5 MG IV PUSH ×2 (23:42→23:49)
[2024-05-26 23:46] LABS: Beta-Hydroxybutyrate/Acetoacetate 0.15 mmol/L (0.02-0.27)
--- NOTE | 2024-05-26 23:49 | PC.NURSE ---
per edp dr. olson patient to receive another 5mg of valium. this rn used closed loop communication to confirm route/ dose/ time/ patient/ medication. edp dr. olson verbalized okay.
[2024-05-27] VITALS (31 sets, daily range): BP systolic 117–160; BP diastolic 46–91; PULSE 79–109; RESP 12–26; TEMP 36.3–36.8; O2SAT 96–100; BMI 44.5
[2024-05-27 01:41] LABS: Reflex Lactic Acid Yes or No Add Lactic
[2024-05-27 02:22] LABS: Appearance Urine Clear (Clear); Bacteria Urine None Seen /hpf; Bilirubin Urine Negative (Negative); Blood Urine Negative (Negative); Color Urine Yellow (Yellow); Glucose Urine UA Negative (Negative); Ketones Urine Negative (Negative); Leukocyte Esterase Ur Trace LEU/UL (Negative); Need Manual Microscopic Reviewed; Nitrate Urine Positive (Negative); Non Pathogenic Casts 0-2; Protein Urine Negative (Negative); RBC Urine 0-2 /hpf (0-2); Specific Grav Ur 1.019 (1.001-1.035); Squamous Epithelial Cell Urine None Seen /hpf (Few); Urobilinogen Urine 0.2 mg/dL (<2.0); WBC Urine 0-5 /hpf (0-3); pH Urine 5.5 (5.0-9.0)
[2024-05-27 02:23] LABS: Add Urine Microscopic? YES
[2024-05-27] MEDS: ACETAMINOPHEN 500 MG TABLET 1000 MG PO (03:01)
[2024-05-27] MEDS: MIDAZOLAM HCL (*CRX) 2 MG/2 ML VIAL (03:54)
[2024-05-27 03:56] LABS: Troponin I 0.702 ng/mL (0.000-0.034)
[2024-05-27] MEDS: levETIRAcetam IV 4,500 MG in DEXTROSE 5% 100 ML 870 MG IVPB (04:23)
--- NOTE | 2024-05-27 04:23 | ECG_ITS ---
Test Date: 2024-05-27 04:38:56 Measurements Intervals Rector Rate: 99 P: 50 [place]: 180 QRS: -39 QRSD: 93 T: 81 QT: 337 QTc: 433 Interpretive Statements SINUS RHYTHM LEFT AXIS DEVIATION ANTERIOR INFARCT, AGE INDETERMINATE BORDERLINE ST-T WAVE ABNORMALITY- HIGH LATERAL LEADS BASELINE ARTIFACT- I, II, III ABNORMAL ECG Compared to ECG 05/26/2024 22:33:40 HEART RATE HAS DECREASED Electronically Signed On 05-27-2024 07:57:45 CDT by Kye Vera D.O.
[2024-05-27] MEDS: LORazepam INJ (*CRX) 2 MG/ML VIAL IV PUSH (06:01)
--- NOTE | 2024-05-27 06:47 | ADMGEN ---
This patient, Nhung Cote, was admitted to IMU Room 206-02 at 0625. Patient/family oriented to hospital policies and general routines including ID bracelet, bed and alarms, visiting hours, pain management, procedures, bathroom and other care routines, personal items, smoking policy, room service/diet, and visiting hours. Information on how to activate the Rapid Response Team has been discussed. Patient/Family are encouraged to report perceived risks to care and to ask questions if they do not understand what they are told or what they should do.
[2024-05-27 07:50] LABS: Glucose Point of Care 222 mg/dl (65-105)
--- NOTE | 2024-05-27 09:13 | PM.IMHP ---
H&P: HPI History of Present Illness Date/Time: 05/27/24 09:13 Chief Complaint: Seizure Narrative: this is a 68-year-old female who presented to from the nursing facility due to another episode of seizure in the nursing facility. EMS was called. Patient has indwelling Barajas catheter. Alert and conversant upon arrival to the ER. Laboratory evaluation showed normal WBC hemoglobin was 13.1. Mildly hyponatremic at 1:32 a.m.. Creatinine was 1.0 hyperglycemic at 358. LFTs were mildly elevated troponin was negative initially. Beta hydroxy butyrate is 0.15. Keppra level has been ordered. Will troponin came back elevated to 0.702. CT head was done which showed no acute findings. CTA head and neck was also done which. EKG showed sinus tachycardia with rate of [address]-T changes. Review of Systems Review of Systems: - CONSTITUTIONAL: Denies weight loss, fever and chills. - HEENT: Denies changes in vision and hearing - RESPIRATORY: Denies SOB and cough. - CV: Denies palpitations and Reports CP more on the left lower area. - GI: Denies abdominal pain, nausea, vomiting and diarrhea. - : Denies dysuria and urinary frequency. - MSK: Denies myalgia and joint pain. - SKIN: Denies rash and pruritus. - NEUROLOGICAL: Denies headache and syncope. reports seizure - PSYCHIATRIC: Denies recent changes in mood. Denies anxiety and depression. [facility] Past Medical History Medical History (Updated 05/27/24 @ 04:33 by Susan Moreira MD) Abnormal brain MRI Anxiety Arthritis Charcot's joint arthropathy in type 2 diabetes mellitus Bilateral ankles Cholecystectomy planned Chronic hyponatremia 130-133 Chronic indwelling Barajas catheter Chronic pain CVA (cerebral vascular accident) Depression Epilepsy Hepatic steatosis Hyperlipidemia Hypertension Hypothyroidism Insulin dependent diabetes mellitus Morbid obesity with BMI of 45.0-49.9, adult Neuropathy Seizure disorder Urinary retention with incomplete bladder emptying Urinary tract infection due to ESBL Klebsiella Surgical History Surgical History (Updated 04/03/24 @ 07:58 by Alona Chun DO) History of ankle surgery Bilateral ankle surgery for Charcot joint History of appendectomy History of X2 History of tonsillectomy and adenoidectomy History of umbilical hernia repair With mesh Hx of cholecystectomy Family History Family History Father Acute myocardial infarction, Onset Age: 55 Mother Dementia Daughter Epilepsy Social History Social History (Updated 05/26/24 @ 22:56 by Susan Moreira MD) Social History: She reports that she has been in half-way facility since fall. Prior to that she lived with her daughter. She rates the 2 daughters. 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 She denies any history of tobacco alcohol or illicit substance use. . Code status: DNR/DNI per patient request previously indicated though retirement documentation POLST dated 05/2023 states CPR/full treatment Healthcare power of county attorney: Marlyn Cote (youngest daughter) Smoking status: Unknown if ever smoked Alcohol intake: never Substance use: never Substance use type: does not use Do You Feel Safe in your Home?: Yes Lack of Transportation: No Lack of Food: Never True Current Housing: I Have Housing Concerned About Future Housing: No Difficulty Paying Gas/Electric Bills: No Difficulty Paying for Meds: No Currently Unemployed: No Education: High School Diploma/GED Difficulty w/ Childcare or Family Care: No Living arrangements: retirement Additional living arrangements comments: [facility] Spiritual care concerns: No Meds Home Medications and Allergies Home Medications Medication Instructions Recorded Confirmed Type aspirin
[2024-05-27 09:27] LABS: Basophils Absolute Auto 0.1 K/mm3 (0.0-0.1); Basophils Percent Auto 0.5 % (0.2-1.2); Eosinophils Absolute Auto 0.1 K/mm3 (0-0.3); Eosinophils Percent Auto 1.4 % (0-4.4); Hematocrit 36.9 % (37.0-47.0); Hemoglobin 12.4 g/dL (12.0-15.0); Immature Granulocyte Absolute 0.04 K/mm3 (0.00-0.031); Immature Granulocyte Percent A 0.4 % (0-0.5); Lymphocytes Absolute Auto 1.72 K/mm3 (0.9-3.2); Lymphocytes Percent Auto 16.9 % (18.3-44.2); Mean Corpuscular HGB Conc 33.6 g/dl (32-36); Mean Corpuscular Hemoglobin 28.8 pg (26-34); Mean Corpuscular Volume 85.6 fl (80-100); Mean Platelet Volume 9.3 fl (7.4-10.4); Monocytes Absolute Auto 0.6 K/mm3 (0.1-0.6); Monocytes Percent Auto 5.6 % (2.6-8.5); Neutrophils Absolute Auto 7.6 K/mm3 (1.3-6.7); Neutrophils Percent Auto 75.2 % (45.5-73.1); Platelet Count Result 199 k/mm3 (150-375); Red Blood Count 4.31 M/mm3 (4.2-5.4); Red Cell Distribution Width 13.7 % (11.5-14.5); White Blood Count 10.2 K/mm3 (4.5-10.0)
[2024-05-27 09:36] LABS: Lactic Acid Reflex 2.7 mmol/L (0.7-2.0)
[2024-05-27 09:38] LABS: INR 1.1; Partial Thromboplastin Time 24.5 Seconds (22.3-36.8); Prothrombin Time 14.1 Seconds (11.1-14.7)
[2024-05-27] MEDS: HEPARIN SOD/D5W 100 UNITS/ML 25,000 UNITS/250 ML BAG 10 UNITS IV CONT (09:42)
[2024-05-27] MEDS: HEPARIN SODIUM 5,000 UNITS/ML VIAL 4000 UNITS IV PUSH ×2 (09:43→16:17)
[2024-05-27] MEDS: SODIUM CHLORIDE 0.9% IV 1,000 ML 100 ML IV CONT (09:47)
[2024-05-27 11:51] LABS: Glucose Point of Care 172 mg/dl (65-105)
--- NOTE | 2024-05-27 13:46 | PM.CNCAR ---
Assessment and Plan Assessment and plan (1) Non-ST elevation CA (NSTEMI): Code(s): I21.4 - Non-ST elevation (NSTEMI) myocardial infarction Status: Acute Plan Elevated troponin could be demand ischemia type 2 NSTEMI in the setting of status epilepticus versus related to underlying coronary artery disease Status epilepticus Diabetes mellitus type 2 Hypothyroidism Hypertension controlled Plan Transthoracic echocardiogram Aspirin Stat Continue metoprolol XL 12.5 mg daily Continue checking cardiac enzymes until it reaches a peak Full-dose anticoagulation if next troponins continue to rise History of Present Illness History of Present Illness Consult date/time: 05/27/24 13:46 Reason For Visit: Status epilepticus, NSTEMI Narrative: 63-year-old female patient presented from senior care because of recurrent episodes of seizure. Patient has history of seizure disorder. She lives in a senior care was limited physical mobility. I cannot obtain history from patient and information obtained from the chart. Patient does not complain of any symptoms at this time. She denies any chest pain. On admission she was noted to have elevated lactic acid and elevated cardiac enzymes. Review of Systems Review of Systems: ROS unobtainable: Yes unobtainable due to medical condition [facility] Past Medical History Medical History (Updated 05/27/24 @ 04:33 by Susan Moreira MD) Abnormal brain MRI Anxiety Arthritis Charcot's joint arthropathy in type 2 diabetes mellitus Bilateral ankles Cholecystectomy planned Chronic hyponatremia 130-133 Chronic indwelling Barajas catheter Chronic pain CVA (cerebral vascular accident) Depression Epilepsy Hepatic steatosis Hyperlipidemia Hypertension Hypothyroidism Insulin dependent diabetes mellitus Morbid obesity with BMI of 45.0-49.9, adult Neuropathy Seizure disorder Urinary retention with incomplete bladder emptying Urinary tract infection due to ESBL Klebsiella Surgical History Surgical History (Updated 04/03/24 @ 07:58 by Alona Chun DO) History of ankle surgery Bilateral ankle surgery for Charcot joint History of appendectomy History of X2 History of tonsillectomy and adenoidectomy History of umbilical hernia repair With mesh Hx of cholecystectomy Family History Family History Father Acute myocardial infarction, Onset Age: 55 Mother Dementia Daughter Epilepsy Social History Social History (Updated 05/26/24 @ 22:56 by Susan Moreira MD) Social History: She reports that [facility]. Prior to that she lived with her daughter. She rates the 2 daughters. 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 She denies any history of tobacco alcohol or illicit substance use. . Code status: DNR/DNI per patient request previously indicated though senior care documentation POLST dated 05/2023 states CPR/full treatment Healthcare power of state's attorney: Marlyn Cote (youngest daughter) Smoking status: Unknown if ever smoked Alcohol intake: never Substance use: never Substance use type: does not use Do You Feel Safe in your Home?: Yes Lack of Transportation: No Lack of Food: Never True Current Housing: I Have Housing Concerned About Future Housing: No Difficulty Paying Gas/Electric Bills: No Difficulty Paying for Meds: No Currently Unemployed: No Education: High School Diploma/GED Difficulty w/ Childcare or Family Care: No Living arrangements: senior care Additional living arrangements comments: [facility] Spiritual care concerns: No Meds Home Medications and Allergies Home Medications Medication Instructions Recorded Confirmed Type aspirin 81 mg tablet,delayed 81 mg PO DAILY 02/24/24 05/27/24 History release
--- NOTE | 2024-05-27 13:54 | WPDNEURCNPN ---
Assessment and Plan Assessment and plan (1) Seizure disorder: Code(s): G40.909 - Epilepsy, unspecified, not intractable, without status epilepticus Status: Acute (2) Diabetes: Qualifiers: Diabetes mellitus type: type 2 Diabetes mellitus ferry terminal agent insulin use: with senior living use Diabetes mellitus complication status: without complication Qualified Code(s): E11.9 - Type 2 diabetes mellitus without complications; Z79.4 - MCC (current) use of insulin Code(s): E11.9 - Type 2 diabetes mellitus without complications Status: Acute (3) Diabetic neuropathy: Code(s): E11.40 - Type 2 diabetes mellitus with diabetic neuropathy, unspecified Status: Acute Plan 1. Seizure disorder 2. Diabetes mellitus with neuropathy 3. Diabetic with small-vessel disease compatible with the abnormalities on the MRI of the brain involving the intracranial circulation as well 4. Gait dysfunction complicated by the underlying obesity with diabetic neuropathy suggestion continue the Keppra that is 1000mg twice a day in addition to continuation of other medication that is aspirin 81mg daily atorvastatin 40mg daily she can be taken off the cyclobenzaprine continue on levothyroxine metoprolol and sertraline. she will obviously benefit from the physical therapy Consult date: 05/27/24 HPI: Nhung Cote is a 63 year old female admitted to the hospital through the emergency room for the ongoing diagnosis of seizure disorder reportedly patient has been taking multiple medication as outlined in addition to having had the multiple allergies to the medication such as levofloxacin and metformin and has ongoing history of multiple medical problems including the anxiety diabetes mellitus Charcot's joint arthropathy chronic hyponatremia stroke seizure disorder insulin-dependent diabetes mellitus with neuropathy and seizure disorder since admission to the hospital she has had the CBC which is not significant, head neck CTA with no aneurysm or intracranial arterial stenosis in 0% stenosis of the proximal internal carotid arteries Carotid Doppler study also is not significant and MRI of the brain documented hyper intense signal area in the rachel with no enhancement no hemorrhage Review of Systems Review of Systems: All systems reviewed & are unremarkable except as noted in HPI and below [facility] Past Medical History Medical History (Updated 05/27/24 @ 14:20 by Akira Knowles MD) Abnormal brain MRI Anxiety Arthritis Charcot's joint arthropathy in type 2 diabetes mellitus Bilateral ankles Cholecystectomy planned Chronic hyponatremia 130-133 Chronic indwelling Barajas catheter Chronic pain CVA (cerebral vascular accident) Depression Epilepsy Hepatic steatosis Hyperlipidemia Hypertension Hypothyroidism Insulin dependent diabetes mellitus Morbid obesity with BMI of 45.0-49.9, adult Neuropathy Seizure disorder Urinary retention with incomplete bladder emptying Urinary tract infection due to ESBL Klebsiella Surgical History Surgical History (Updated 04/03/24 @ 07:58 by Alona Chun, DO) History of ankle surgery Bilateral ankle surgery for Charcot joint History of appendectomy History of X2 History of tonsillectomy and adenoidectomy History of umbilical hernia repair With mesh Hx of cholecystectomy Family History Family History Father Acute myocardial infarction, Onset Age: 55 Mother Dementia Daughter Epilepsy Social History Social History (Updated 05/26/24 @ 22:56 by Susan Moreira MD) Social History: She reports that she has been in intermediate facility since fall. Prior to that she lived with her daughter. She rates the 2 daughters. 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 She denies any history of tobacco alcohol or illicit substance use. . Code st
[2024-05-27] MEDS: DULoxetine HCL 60 MG CAPSULE.DR PO (14:16)
[2024-05-27] MEDS: DOCUSATE SODIUM 100 MG CAPSULE PO (14:17)
[2024-05-27] MEDS: ATORVASTATIN 40 MG TABLET PO (14:17)
[2024-05-27] MEDS: METOPROLOL SUCCINATE EXT REL 12.5 MG TABCR PO (14:17)
[2024-05-27] MEDS: SERTRALINE HCL 50 MG TABLET PO (14:18)
[2024-05-27] MEDS: LEVOTHYROXINE SODIUM 88 MCG TABLET PO (14:18)
[2024-05-27] MEDS: ONDANSETRON HCL ODT 4 MG TABLET 8 MG PO (14:18)
[2024-05-27 15:57] LABS: Partial Thromboplastin Time 37.7 Seconds (22.3-36.8)
[2024-05-27 16:25] LABS: Glucose Point of Care 152 mg/dl (65-105)
[2024-05-27] MEDS: CYCLOBENZAPRINE HCL 10 MG TABLET PO (17:01)
[2024-05-27] MEDS: TOLNAFTATE 1% POWDER 45 GM BTL 1 APPLIC TOPICAL (17:02)
[2024-05-27 20:22] LABS: Glucose Point of Care 169 mg/dl (65-105)
[2024-05-27] MEDS: levETIRAcetam 500 MG TABLET 1500 MG PO (20:27)
[2024-05-27 22:45] LABS: Partial Thromboplastin Time 79.8 Seconds (22.3-36.8)
[2024-05-28] VITALS (16 sets, daily range): BP systolic 115–137; BP diastolic 46–83; PULSE 71–106; RESP 18–22; TEMP 36.2–36.8; O2SAT 94–100
--- NOTE | 2024-05-28 | ECHO_ITS ---
Patient Info Name: Nhung Cote Age: 63 years : 1960 Gender: Female Ht: 67 in Wt: 284 lbs BSA: 2.54 m2 HR: 75 bpm BP: 121 / 54 mmHg Heart Rhythm: Sinus Rhythm Technical Quality: Fair Exam Date: 05/28/2024 9:01 AM Exam Location: Echo Lab Patient Status: Inpatient Admit Date: 05/27/2024 Staff Ordering Physician: Ruben Denson MD Chief Scientist: Lian Gibson RDCS Attending Provider: Lio Tenorio MD Exam Type: CA echo dop color flow w con Study Info Indications - elevated troponin Complete two-dimensional, color flow and Doppler transthoracic echocardiogram is performed with contrast to opacify the left ventricle and to improve the deliniation of the left ventricle endocardial borders. Contrast/Agitated Saline Contrast/Ag. Saline: Definity Amount: 2.00 ml Administered By: Lian Gibson RDCS Existing IV Access: Yes IV Access Condition: patent with no signs of infiltration Summary 1. Definity contrast injected to improve visualization. 2. Moderate concentric LVH with hyperdynamic systolic contractility. 3. Mildly enlarged left atrium. 4. Mild mitral annular calcium. 5. No wall motion abnormalities. Left Ventricle Left ventricular chamber dimension is normal. Left ventricular systolic function is hyperdynamic, estimated at >70%. There is moderate concentric increased left ventricular wall thickness. The left ventricular diastolic function is grade I diastolic dysfunction. Right Ventricle Right ventricular chamber dimension is normal. Left Atria Left atrial chamber dimension is mildly enlarged. Right Atria Right atrial chamber dimension is normal. Aortic Valve The aortic valve is normal. Pulmonic Valve The pulmonic valve is normal. Mitral Valve The mitral valve has normal leaflets. The mitral valve annulus is mildly calcified. Tricuspid Valve The tricuspid valve leaflets are normal. Pericardium/Pleural The pericardium appears normal. Aorta The aortic root size at the sinus of Valsalva is normal. Left Ventricular Outflow Tract Name Value Normal LVOT 2D LVOT Diameter 2.04 cm LVOT Doppler LVOT Peak Gradient 11 mmHg LVOT Mean Gradient 7 mmHg LVOT VTI 35.14 cm LVOT VTI/AV VTI Ratio 1.13 LVOT Stroke Volume 114.33 ml LVOT CO 9.46 l/min LVOT CI 3.73 L/min/m2 Pulmonic Valve Name Value Normal RVOT Doppler RVOT Peak Gradient 3 mmHg PV Doppler PV Peak Gradient 5 mmHg Mitral Valve Name Value Normal
[2024-05-28] MEDS: SODIUM CHLORIDE 0.9% IV 1,000 ML 75 ML IV CONT ×2 (00:15→15:02)
[2024-05-28 04:35] LABS: Basophils Absolute Auto 0.1 K/mm3 (0.0-0.1); Basophils Percent Auto 0.7 % (0.2-1.2); Eosinophils Absolute Auto 0.3 K/mm3 (0-0.3); Eosinophils Percent Auto 3.5 % (0-4.4); Hematocrit 35.5 % (37.0-47.0); Hemoglobin 11.6 g/dL (12.0-15.0); Immature Granulocyte Absolute 0.03 K/mm3 (0.00-0.031); Immature Granulocyte Percent A 0.4 % (0-0.5); Lymphocytes Absolute Auto 2.18 K/mm3 (0.9-3.2); Lymphocytes Percent Auto 29.5 % (18.3-44.2); Mean Corpuscular HGB Conc 32.7 g/dl (32-36); Mean Corpuscular Volume 88.8 fl (80-100); Mean Platelet Volume 9.8 fl (7.4-10.4); Monocytes Absolute Auto 0.5 K/mm3 (0.1-0.6); Neutrophils Absolute Auto 4.4 K/mm3 (1.3-6.7); Neutrophils Percent Auto 58.9 % (45.5-73.1); Platelet Count Result 162 k/mm3 (150-375); Red Cell Distribution Width 13.9 % (11.5-14.5); White Blood Count 7.4 K/mm3 (4.5-10.0)
[2024-05-28 04:43] LABS: Partial Thromboplastin Time 75.2 Seconds (22.3-36.8)
[2024-05-28] MEDS: HEPARIN SOD/D5W 100 UNITS/ML 25,000 UNITS/250 ML BAG 14 UNITS IV CONT ×2 (05:05→23:14)
[2024-05-28] MEDS: LEVOTHYROXINE SODIUM 88 MCG TABLET PO (05:50)
[2024-05-28 06:47] LABS: Glucose Point of Care 169 mg/dl (65-105)
[2024-05-28] MEDS: DULoxetine HCL 60 MG CAPSULE.DR PO (08:40)
[2024-05-28] MEDS: CYCLOBENZAPRINE HCL 10 MG TABLET PO ×2 (08:40→18:22)
[2024-05-28] MEDS: ATORVASTATIN 40 MG TABLET PO (08:40)
[2024-05-28] MEDS: METOPROLOL SUCCINATE EXT REL 12.5 MG TABCR PO (08:40)
[2024-05-28] MEDS: ASPIRIN 81 MG CHEWABLE TABLET PO (08:40)
[2024-05-28] MEDS: SERTRALINE HCL 50 MG TABLET PO (08:40)
[2024-05-28] MEDS: levETIRAcetam 500 MG TABLET 1500 MG PO ×2 (08:40→20:37)
[2024-05-28] MEDS: DOCUSATE SODIUM 100 MG CAPSULE PO (08:40)
[2024-05-28] MEDS: TOLNAFTATE 1% POWDER 45 GM BTL 1 APPLIC TOPICAL ×2 (08:41→20:39)
[2024-05-28] MEDS: HYDROcodone/acetaminophen (*CRX) 5-325 MG TABLET 1 TAB PO ×2 (08:47→23:59)
--- NOTE | 2024-05-28 08:50 | PC.NURSE ---
Alert and oriented, sitting upright on the side of the bed. Complains of pain located in right hip and leg. Rates pain a 9/10. States I always have problems with that leg . Very pleasant and cooperative with care. Discussed plan of care including plans for ECHO today. Verbalizes understanding and denies questions at this time. No acute distress noted. Verbalizes understanding regarding medications and denies questions regarding medication regime at this time.
[2024-05-28 08:53] LABS: Alanine Aminotransferase 32 U/L (6-35); Albumin Level 3.6 g/dL (3.5-5.1); Alkaline Phosphatase 141 U/L (38-126); Anion Gap 8 mmol/L (4-12); Aspartate Amino Transferase 61 U/L (14-36); Bilirubin,Total 0.6 mg/dL (0.2-1.3); Blood Urea Nitrogen 19 mg/dL (7-17); Calcium 9.1 mg/dL (8.4-10.2); Carbon Dioxide 26 mmol/L (22-30); Chloride 102 mmol/L (98-107); Estimated CRCL calculation 65 ml/min; Estimated Glomerular Filt Rate 50; Glucose 176 mg/dL (65-110); Magnesium 1.8 mg/dL (1.6-2.3); Potassium 4.4 mmol/L (3.4-5.0); Sodium 136 mmol/L (137-145)
[2024-05-28] MEDS: PERFLUTREN LIPID MICROSPHERES 1.5 ML VIAL DILUTED TO 10 ML TOTAL VOLUME IV PUSH (09:35)
--- NOTE | 2024-05-28 11:05 | PM.PNCARD ---
Progress Note: A&P Assessment and Plan (1) Troponin level elevated: Code(s): R79.89 - Other specified abnormal findings of blood chemistry Status: Acute Plan Patient's troponin elevation is attributable to her seizure disorder. Further cardiac workup of this is not plantar recommended. I am going to sign off of her inpatient follow-up at this time. Please call if there are cardiovascular questions Tom Gold MD [facility] Subjective Date/time seen: Date of service: 05/28/24 11:05 Interval history: Follow-up visit in this 63-year-old lady with elevated troponin in the setting of recurrent seizures. Patient is resting comfortably flat in bed upon awakening has no cardiovascular symptoms or complaints. Exam Const: General: comfortable and no acute distress Other: Able to lie flat HENMT: Face/Nose/Sinus: Normal nares present and no epistaxis Mouth: Yes moist mucous membranes Eyes: Sclera: sclerae normal Pupils: Equal, round and reactive pupils present Neck: Neck: supple and no JVD Carotids: no bruits Resp: Auscultation: clear to auscultation bilaterally and lung sounds not diminished Other: No chest wall tenderness Cardio: Rate: regular rate Rhythm: regular rhythm Heart sounds: no gallops, no murmurs and no rubs GI: Auscultation: normal bowel sounds Skin: General skin exam: normal color, rashes and/or lesions noted and no erythema Other: Warm Neuro: Cranial nerves: Yes Equal, round and reactive pupils present Speech: normal speech Other: No obvious focal deficit or facial asymmetry Extrem: General: no edema Other: Normal capillary refills Intact distal pulses. Objective Data Vital Signs Vital Signs: Vital Signs - 24 hr 05/27/24 11:51 05/27/24 12:00 05/27/24 12:00 Temperature 36.7 C Pulse Rate 82 98 Respiratory Rate 12 Blood Pressure 139/75 Pulse Oximetry 99 99 Oxygen Delivery Nasal Cannula Oxygen Flow Rate 2 Fraction of Inspired Oxygen 05/27/24 14:17 05/27/24 14:00 05/27/24 16:00 Temperature Pulse Rate 94 104 H Respiratory Rate Blood Pressure Pulse Oximetry 99 Oxygen Delivery Nasal Cannula Oxygen Flow Rate 2 Fraction of Inspired Oxygen 05/27/24 16:00 05/27/24 16:00 05/27/24 18:00 Temperature 36.3 C L Pulse Rate 88 88 97 Respiratory Rate 16 Blood Pressure 128/70 Pulse Oximetry 96 Oxygen Delivery Oxygen Flow Rate Fraction of Inspired Oxygen 05/27/24 19:36 05/27/24 20:32 05/27/24 20:00 Temperature 36.3 C L Pulse Rate 97 94 79 Respiratory Rate 16 18 Blood Pressure 130/68 Pulse Oximetry 96 96 Oxygen Delivery Nasal Cannula Oxygen Flow Rate 2 Fraction of Inspired Oxygen 05/27/24 22:00 05/27/24 23:34 05/28/24 00:00 Temperature 36.3 C L Pulse Rate 80 92 92 Respiratory Rate 18 18 Blood Pressure 122/62 Pulse Oximetry 96 96 Oxygen Delivery Nasal Cannula Oxygen Flow Rate 2 Fraction of Inspired Oxygen 05/28/24 00:00 05/28/24 02:00 05/28/24 04:25 Temperature 36.4 C Pulse Rate 95 84 75 Respiratory Rate 18 Blood Pressure 121/54 L Pulse Oximetry 96 Oxygen Delivery Oxygen Flow Rate Fraction of Inspired Oxygen 05/28/24 04:00 05/28/24 04:00 05/28/24 06:17 Temperature Pulse Rate 86 75 80 Respiratory Rate 18 Blood Pressure Pulse Oximetry 96 Oxygen Delivery Nasal Cannula Oxygen Flow Rate 2 Fraction of Inspired Oxygen 05/28/24 08:00 05/28/24 08:22 05/28/24 08:32 Temperature 36.6 C Pulse Rate 78 Respiratory Rate 22 H Blood Pressure 121/46 L Pulse Oximetry 95 96 94 Oxygen Delivery Nasal Cannula Room Air Oxygen Flow Rate 2 Fraction of Inspired Oxygen 28 05/28/24 08:40 05/28/24 08:00 05/28/24 08:00 Temperature Pulse Rate 106 H 74 74 Respiratory Rate 22 H Blood Pressure Pulse Oximetry 94 Oxygen Delivery Room Air Oxygen Flow Rate Fraction of Inspired Oxy
--- NOTE | 2024-05-28 11:29 | PM.IMPN ---
Progress Note: A&P Assessment and Plan (1) Abnormal brain MRI: Code(s): R90.89 - Other abnormal findings on diagnostic imaging of central nervous system Status: Acute (2) Seizure disorder: Code(s): G40.909 - Epilepsy, unspecified, not intractable, without status epilepticus Status: Acute (3) Recurrent seizures: Code(s): G40.909 - Epilepsy, unspecified, not intractable, without status epilepticus Status: Acute (4) Type 2 diabetes mellitus with hyperglycemia, with long-term current use of insulin: Code(s): E11.65 - Type 2 diabetes mellitus with hyperglycemia; Z79.4 - computer terminal operator (current) use of insulin Status: Acute (5) Chronic pain: Qualifiers: Chronic pain type: other chronic pain Qualified Code(s): G89.29 - Other chronic pain Code(s): G89.29 - Other chronic pain Status: Acute (6) Chronic indwelling Barajas catheter: Code(s): Z97.8 - Presence of other specified devices Status: Acute (7) Hypothyroidism: Qualifiers: Hypothyroidism type: unspecified Qualified Code(s): E03.9 - Hypothyroidism, unspecified Code(s): E03.9 - Hypothyroidism, unspecified Status: Acute (8) Breakthrough seizure: Code(s): G40.919 - Epilepsy, unspecified, intractable, without status epilepticus Status: Acute Plan this is a 68-year-old female who presented to from the nursing facility due to another episode of seizure in the nursing facility. EMS was called. Patient has indwelling Barajas catheter. Alert and conversant upon arrival to the ER. Laboratory evaluation showed normal WBC hemoglobin was 13.1. Mildly hyponatremic at 1:32 a.m.. Creatinine was 1.0 hyperglycemic at 358. LFTs were mildly elevated troponin was negative initially. Beta hydroxy butyrate is 0.15. Keppra level has been ordered. Will troponin came back elevated to 0.702. CT head was done which showed no acute findings. CTA head and neck was also done which. EKG showed sinus tachycardia with rate of [address]-T changes. # Breakthrough seizure: Keppra level in process. Will resume Keppra as ordered neurology consult. CT head and CTA head and neck unremarkable. MRI recently showed white matter disease. Further workup with cervical and thoracic MRI was planned however patient refused any further workup during hospital stay. easy last admission was abnormal without any seizure-like activity. Was placed on Keppra 1 g b.i.d. will increase to 1500 until neurology evaluation Lactic acidosis likely due to seizure IV fluid continue to monitor Non-STEMI with stent rise of troponin 6 will start heparin drip. Received aspirin 325 mg x 1 will resume 81 mg daily. Cardiology consult. Echo pending. Cardiology suggest type 2 [place] due to seizure disorder. If echo looks okay will stop heparin drip. # type 2 diabetes mellitus with hyperglycemia. resume the patient's home Lantus. SSI # chronic pain: resume patient's home pain medications duloxetine and sertraline may need to taper off these medications due to recurrent seizures # chronic indwelling Barajas catheter. Patient does have chronic indwelling Barajas catheter that was exchanged in the ER. UA negative for in # DVT prophylaxis: heparin drip Subjective Date/time seen: 05/28/24 11:29 Interval history: No overnight events. Denies any chest pain. Remains on heparin drip. Labs reviewed. No further seizure. Review of Systems Review of Systems: All systems reviewed & are unremarkable except as noted in HPI and below Exam Narrative: GENERAL: Well-appearing, well-nourished, and in no acute distress. HEAD: Normocephalic, atraumatic. EYES: Non injected, non icteric ENT: Nares clear, no rhinorrhea or epistaxis. NECK: Supple. CHEST: Speaking in full sentences. No respiratory distress. diminished breath sounds bilaterally HEART: Regular rate and rhythm. telemetry reviewed ABDOMEN: Soft, nondistende
[2024-05-28] MEDS: INSULIN ASPART (*BKC) 100 UNITS/ML SUB-Q (11:43)
--- NOTE | 2024-05-28 12:05 | WPDNEUROPN ---
Progress Note: A&P Assessment and Plan (1) Seizure disorder: Code(s): G40.909 - Epilepsy, unspecified, not intractable, without status epilepticus Status: Acute (2) Type 2 diabetes mellitus with hyperglycemia, with long-term current use of insulin: Code(s): E11.65 - Type 2 diabetes mellitus with hyperglycemia; Z79.4 - group home (current) use of insulin Status: Acute Plan I noted that the dose of Keppra has been increased from 7981-9592 mg a day and I agree with the same. Previous EEG did not show any specific abnormalities. Patient is poorly motivated to get around on account obesity and deconditioning. She has diabetes mellitus and has neuropathy. CT angiogram of head and neck did not show any significant abnormality. It was noted that she has history of seizure disorder since age of 17. She is currently alf and has a indwelling catheter. Her troponin levels are high and this is being looked at by the product picker. Subjective Date/time seen: 05/28/24 12:05 Interval history: the patient is 63 years old with history of seizure disorder since age 17 and diabetes mellitus. She is admitted to the hospital with history of having had a seizure at alf. The patient does not seem to cooperate very well during the examination but does seem to be awake and states that she gets around in a wheelchair only. She is currently on Keppra 3000 mg a day in addition she is also on aspirin and Lipitor. EEG performed on 04/10/2024 had shown moderate diffuse background slowing. Her troponin levels are high and this is being evaluated form the point of view. I saw her earlier in March of for evaluation of seizure disorder. At that time she was on Keppra 2000 mg a day which has now been increased to 3000 mg a day in view of the seizures. Review of Systems Review of Systems: ROS unobtainable: Yes unobtainable due to mental status Exam Narrative: awake but somewhat sleepy. The does not cooperate very well for examination. Did this with my fingers. No involuntary movements are seen. No cogwheeling was noted. Objective Data Vital Signs Vital Signs: Vital Signs - 24 hr 05/27/24 14:17 05/27/24 14:00 05/27/24 16:00 Temperature Pulse Rate 94 104 H Respiratory Rate Blood Pressure Pulse Oximetry 99 Oxygen Delivery Nasal Cannula Oxygen Flow Rate 2 Fraction of Inspired Oxygen 05/27/24 16:00 05/27/24 16:00 05/27/24 18:00 Temperature 36.3 C L Pulse Rate 88 88 97 Respiratory Rate 16 Blood Pressure 128/70 Pulse Oximetry 96 Oxygen Delivery Oxygen Flow Rate Fraction of Inspired Oxygen 05/27/24 19:36 05/27/24 20:32 05/27/24 20:00 Temperature 36.3 C L Pulse Rate 97 94 79 Respiratory Rate 16 18 Blood Pressure 130/68 Pulse Oximetry 96 96 Oxygen Delivery Nasal Cannula Oxygen Flow Rate 2 Fraction of Inspired Oxygen 05/27/24 22:00 05/27/24 23:34 05/28/24 00:00 Temperature 36.3 C L Pulse Rate 80 92 92 Respiratory Rate 18 18 Blood Pressure 122/62 Pulse Oximetry 96 96 Oxygen Delivery Nasal Cannula Oxygen Flow Rate 2 Fraction of Inspired Oxygen 05/28/24 00:00 05/28/24 02:00 05/28/24 04:25 Temperature 36.4 C Pulse Rate 95 84 75 Respiratory Rate 18 Blood Pressure 121/54 L Pulse Oximetry 96 Oxygen Delivery Oxygen Flow Rate Fraction of Inspired Oxygen 05/28/24 04:00 05/28/24 04:00 05/28/24 06:17 Temperature Pulse Rate 86 75 80 Respiratory Rate 18 Blood Pressure Pulse Oximetry 96 Oxygen Delivery Nasal Cannula Oxygen Flow Rate 2 Fraction of Inspired Oxygen 05/28/24 08:00 05/28/24 08:22 05/28/24 08:32 Temperature 36.6 C Pulse Rate 78 Respiratory Rate 22 H Blood Pressure 121/46 L Pulse Oximetry 95 96 94 Oxygen Delivery Nasal Cannula Room Air Oxygen Flow Rate 2 Fraction of Inspired Oxygen 05/28/24 08:40 05/28/24 08:00 05/28/24 08:00 [facility]
[2024-05-28 12:09] LABS: Glucose Point of Care 227 mg/dl (65-105)
[2024-05-28 12:38] LABS: Levetiracetam Keppra 38.4 mcg/mL (6.0-46.0)
--- NOTE | 2024-05-28 13:12 | IVDEFINITY ---
Prior to administration of IV Definity the patient was educated on the risks and benefits of the imaging enhancing agent including potential adverse side effects. The patient verbalized understanding. Allergies were verified. No exclusion criteria were identified and at least one of the following inclusion criteria were met: 1) physician request, 2) patient technically difficult to image (per the [place] [employer] guidelines of two or more segments not discernable within the apical view), or 3) questionable left ventricular function. ?
[2024-05-28 17:01] LABS: Glucose Point of Care 177 mg/dl (65-105)
[2024-05-28] MEDS: ONDANSETRON HCL ODT 4 MG TABLET 8 MG PO (18:22)
[2024-05-28] MEDS: INSULIN GLARGINE (*BKC) 100 UNITS/ML 12 UNITS SUB-Q (18:23)
[2024-05-28 19:58] LABS: Glucose Point of Care 174 mg/dl (65-105)
[2024-05-29] VITALS (12 sets, daily range): BP systolic 110–127; BP diastolic 52–79; PULSE 76–118; RESP 20; TEMP 36–36.9; O2SAT 96–100
[2024-05-29] MEDS: SODIUM CHLORIDE 0.9% IV 1,000 ML 75 ML IV CONT (03:43)
[2024-05-29 04:45] LABS: Basophils Absolute Auto 0.1 K/mm3 (0.0-0.1); Basophils Percent Auto 0.6 % (0.2-1.2); Eosinophils Absolute Auto 0.2 K/mm3 (0-0.3); Eosinophils Percent Auto 2.8 % (0-4.4); Hematocrit 35.6 % (37.0-47.0); Hemoglobin 11.3 g/dL (12.0-15.0); Immature Granulocyte Absolute 0.04 K/mm3 (0.00-0.031); Immature Granulocyte Percent A 0.5 % (0-0.5); Lymphocytes Absolute Auto 2.09 K/mm3 (0.9-3.2); Mean Corpuscular HGB Conc 31.7 g/dl (32-36); Mean Corpuscular Hemoglobin 27.9 pg (26-34); Mean Corpuscular Volume 87.9 fl (80-100); Mean Platelet Volume 9.5 fl (7.4-10.4); Monocytes Absolute Auto 0.5 K/mm3 (0.1-0.6); Monocytes Percent Auto 5.5 % (2.6-8.5); Neutrophils Absolute Auto 5.5 K/mm3 (1.3-6.7); Neutrophils Percent Auto 65.6 % (45.5-73.1); Platelet Count Result 174 k/mm3 (150-375); Red Blood Count 4.05 M/mm3 (4.2-5.4); Red Cell Distribution Width 13.7 % (11.5-14.5); White Blood Count 8.4 K/mm3 (4.5-10.0)
[2024-05-29 04:58] LABS: Partial Thromboplastin Time 67.1 Seconds (22.3-36.8)
[2024-05-29 05:10] LABS: Alanine Aminotransferase 34 U/L (6-35); Albumin Level 3.6 g/dL (3.5-5.1); Alkaline Phosphatase 148 U/L (38-126); Anion Gap 8 mmol/L (4-12); Aspartate Amino Transferase 61 U/L (14-36); Bilirubin,Total 0.6 mg/dL (0.2-1.3); Blood Urea Nitrogen 17 mg/dL (7-17); Calcium 9.1 mg/dL (8.4-10.2); Carbon Dioxide 27 mmol/L (22-30); Chloride 101 mmol/L (98-107); Estimated CRCL calculation 71 ml/min; Estimated Glomerular Filt Rate 56; Glucose 126 mg/dL (65-110); Magnesium 1.6 mg/dL (1.6-2.3); Potassium 4.3 mmol/L (3.4-5.0); Sodium 136 mmol/L (137-145)
[2024-05-29] MEDS: HEPARIN SODIUM 5,000 UNITS/ML VIAL 3500 UNITS IV PUSH (05:20)
[2024-05-29] MEDS: LEVOTHYROXINE SODIUM 88 MCG TABLET PO (05:23)
[2024-05-29 06:45] LABS: Glucose Point of Care 159 mg/dl (65-105)
[2024-05-29] MEDS: levETIRAcetam 500 MG TABLET 1500 MG PO (08:21)
[2024-05-29] MEDS: METOPROLOL SUCCINATE EXT REL 12.5 MG TABCR PO (08:21)
[2024-05-29] MEDS: SERTRALINE HCL 50 MG TABLET PO (08:21)
[2024-05-29] MEDS: DOCUSATE SODIUM 100 MG CAPSULE PO (08:21)
[2024-05-29] MEDS: ASPIRIN 81 MG CHEWABLE TABLET PO (08:21)
[2024-05-29] MEDS: DULoxetine HCL 60 MG CAPSULE.DR PO (08:22)
[2024-05-29] MEDS: CYCLOBENZAPRINE HCL 10 MG TABLET PO (08:22)
[2024-05-29] MEDS: ATORVASTATIN 40 MG TABLET PO (08:22)
[2024-05-29] MEDS: LIDOCAINE 5% PATCH 2 PATCH TOPICAL (08:23)
[2024-05-29] MEDS: TOLNAFTATE 1% POWDER 45 GM BTL 1 APPLIC TOPICAL (08:23)
[2024-05-29] MEDS: HYDROcodone/acetaminophen (*CRX) 5-325 MG TABLET 1 TAB PO (08:28)
--- NOTE | 2024-05-29 10:45 | PCPTNOTE ---
Attempted Pt evaluation, pt refused stating i'm napping right now. Will follow.
[2024-05-29 11:35] LABS: Glucose Point of Care 163 mg/dl (65-105)
--- NOTE | 2024-05-29 12:28 | PM.DS ---
DS: Admitting Diagnosis Discharge Date 05/29/2024 Admitting Diagnosis Breakthrough seizure DS: Discharge Diagnosis Discharge Diagnosis (1) Abnormal brain MRI: Code(s): R90.89 - Other abnormal findings on diagnostic imaging of central nervous system Status: Acute (2) Seizure disorder: Code(s): G40.909 - Epilepsy, unspecified, not intractable, without status epilepticus Status: Acute (3) Recurrent seizures: Code(s): G40.909 - Epilepsy, unspecified, not intractable, without status epilepticus Status: Acute (4) Type 2 diabetes mellitus with hyperglycemia, with long-term current use of insulin: Code(s): E11.65 - Type 2 diabetes mellitus with hyperglycemia; Z79.4 - [facility] (current) use of insulin Status: Acute (5) Chronic pain: Qualifiers: Chronic pain type: other chronic pain Qualified Code(s): G89.29 - Other chronic pain Code(s): G89.29 - Other chronic pain Status: Acute (6) Chronic indwelling Barajas catheter: Code(s): Z97.8 - Presence of other specified devices Status: Acute (7) Hypothyroidism: Qualifiers: Hypothyroidism type: unspecified Qualified Code(s): E03.9 - Hypothyroidism, unspecified Code(s): E03.9 - Hypothyroidism, unspecified Status: Acute (8) Breakthrough seizure: Code(s): G40.919 - Epilepsy, unspecified, intractable, without status epilepticus Status: Acute DS: Summary Hospital Course Hospital Course: this is a 68-year-old female who presented to from the nursing facility due to another episode of seizure in the nursing facility. EMS was called. Patient has indwelling Barajas catheter. Alert and conversant upon arrival to the ER. Laboratory evaluation showed normal WBC hemoglobin was 13.1. Mildly hyponatremic at 1:32 a.m.. Creatinine was 1.0 hyperglycemic at 358. LFTs were mildly elevated troponin was negative initially. Beta hydroxy butyrate is 0.15. Keppra level has been ordered. Will troponin came back elevated to 0.702. CT head was done which showed no acute findings. CTA head and neck was also done which. EKG showed sinus tachycardia with rate of [address]-T changes. # Breakthrough seizure: Keppra level 38. Resume Keppra as ordered neurology consult. CT head and CTA head and neck unremarkable. MRI recently showed white matter disease. Further workup with cervical and thoracic MRI was planned however patient refused any further workup during hospital stay. easy last admission was abnormal without any seizure-like activity. Was placed on Keppra 1 g b.i.d. increased to 1500 due to breakthrough seizure. Follow-up with Neurology as an outpatient basis # Lactic acidosis likely due to seizure IV fluid continue to monitor # Non-STEMI with stent rise of troponin 6 will start heparin drip. Received aspirin 325 mg x 1 will resume 81 mg daily. Cardiology consult. Cardiology suggest type 2 [place] due to seizure disorder. Echo with no wall motion abnormality. Heparin drip stopped. No further workup per cardiology # type 2 diabetes mellitus with hyperglycemia. resume the patient's home Lantus. SSI # chronic pain: resume patient's home pain medications duloxetine and sertraline may need to taper off these medications due to recurrent seizures # chronic indwelling Barajas catheter. Patient does have chronic indwelling Barajas catheter that was exchanged in the ER. UA negative for in # DVT prophylaxis: heparin drip during the hospital stay Time Spent with Patient Time attestation: Total time spent providing and/or coordinating discharge services: 35 minutes Exam Narrative: GENERAL: Well-appearing, well-nourished, and in no acute distress. HEAD: Normocephalic, atraumatic. EYES: Non injected, non icteric ENT: Nares clear, no rhinorrhea or epistaxis. NECK: Supple. CHEST: Speaking in full sentences. No respiratory distress. diminished breath sounds bilaterally HE
--- NOTE | 2024-05-29 14:24 | PC.NURSE ---
Report called to Carmen at [facility]. Report included current medication list, follow up care and current assessment including vital signs. Carmen denies further questions at this time. Waiting on ambulance services to take patient back to facility.
== END 2024-05-29 15:23 | DRG 100 ==
LOC: ANHED 22:54 → ANHIMU 05-27 06:01
PROVIDERS: Admitting Provider Internal Medicine; Emergency Provider Student in an Organized Health Care Education/Training Program; PCP Hospitalist; Visit Provider Internal Medicine
DX: G40.909 Epilepsy, unspecified, not intractable, without status epilepticus (principal); I21.A1 Myocardial infarction type 2; Z68.41 Body mass index [BMI] 40.0-44.9, adult; E87.1 Hypo-osmolality and hyponatremia; E11.42 Type 2 diabetes mellitus with diabetic polyneuropathy; E11.65 Type 2 diabetes mellitus with hyperglycemia; G89.29 Other chronic pain; R90.89 Other abnormal findings on diagnostic imaging of central nervous system; I10 Essential (primary) hypertension; G62.9 Polyneuropathy, unspecified; E03.9 Hypothyroidism, unspecified; M19.90 Unspecified osteoarthritis, unspecified site; E66.01 Morbid (severe) obesity due to excess calories; E78.5 Hyperlipidemia, unspecified; K76.0 Fatty (change of) liver, not elsewhere classified; Z79.4 Long term (current) use of insulin; Z86.73 Personal history of transient ischemic attack (TIA), and cerebral infarction without residual deficits; Z90.49 Acquired absence of other specified parts of digestive tract; Z79.82 Long term (current) use of aspirin
CPT/HCPCS: 36415; 70496; 70498; 71045; 80053; 80177; 81001; 82010; 82948; 83605; 83735; 84484; 85025; 85610; 85730; 93005; 96361; 96365; 96367; 96375; 99285; A9270; C8929; J1644; J1815; J1953; J2060; J2250; J3360; J3475; J7030; Q9957; Q9967